=== PATIENT | female | born 1965 | race Caucasian/White ===

== ENCOUNTER → 2018-09-30 | Outpatient (CLI) | payer BC, SELFPAY ==
[2018-09-29 08:33] VITALS: BMI 35.2
--- NOTE | 2018-09-30 07:26 | RAD_ITS ---
STUDY: X-RAY - RIGHT HAND, ATTENTION 5TH FINGER REASON FOR EXAM: Female, 53 years old. Trauma TECHNIQUE: 3 view(s) of the finger were obtained. COMPARISON: None. FINDINGS: There is no evidence of fracture or dislocation. There are no significant degenerative changes. There are no radiodense foreign bodies. RAD/Finger(s) Min 2 Views IMPRESSION: No fracture or dislocation. Electronically Signed: Juan C Olivia, at 16:48 EDT Tel , Service support ,
== END | disposition home or self-care (01) ==
LOC: HPRAD 07:25
PROVIDERS: Referring Provider Nurse Practitioner Family; Visit Provider Nurse Practitioner Family
DX: S69.91XA Unspecified injury of right wrist, hand and finger(s), initial encounter (principal)
CPT/HCPCS: 73140

== ENCOUNTER → 2019-12-02 14:55 | Outpatient (CLI) | payer BC, SELFPAY ==
[2019-11-18 08:11] VITALS: BMI 34.3
--- NOTE | 2019-12-02 15:00 | BI_ITS ---
MAMMOGRAPHY - BILATERAL SCREENING REASON FOR EXAM: Female, 54 years old. Routine annual screening examination. PERTINENT HISTORY: Non-contributory. TECHNIQUE: Digital bilateral breast lori (3D mammographic acquisition) in the CC and MLO projections. 2-D mediolateral oblique (MLO) and craniocaudad (CC) views of both breasts were obtained. CAD: Full Field Digital Mammography with Computer Added Detection was performed. COMPARISON: Comparison is made with prior outside examination dated 10/01/2018. FINDINGS: Breast Composition: The breasts are almost entirely fatty. There are no dominant masses or suspicious calcifications. No other significant abnormalities are identified. There has been no significant change since the prior study. BI/SCREEN MAMM (CAD) W/LORI BILAT IMPRESSION: Stable bilateral screening mammogram. Yearly follow-up mammogram recommended. (A) ASSESSMENT CATEGORY: BIRADS Category 1: Negative. A letter regarding these results will be sent to the patient by the facility within 30 days. Approximately 10% of breast cancers are not detected by mammography. A normal mammogram should not delay biopsy of a clinically suspicious abnormality. [id number] Electronically Signed: Romeo Pettit, at 15:40 EDT , Service support ,
== END ==
PROVIDERS: PCP Nurse Practitioner Family; Referring Provider Nurse Practitioner Family; Visit Provider Nurse Practitioner Family
DX: Z12.31 Encounter for screening mammogram for malignant neoplasm of breast (principal)
CPT/HCPCS: 77063; 77067

== ENCOUNTER → 2020-01-14 14:05 | Outpatient (CLI) | payer BC, SELFPAY ==
[2020-01-14 11:33] VITALS: BMI 34.3
[2020-01-19 16:12] LABS: HPV APTIMA, High Risk Negative (Negative)
== END ==
PROVIDERS: PCP Nurse Practitioner Family; Referring Provider Obstetrics & Gynecology; Visit Provider Obstetrics & Gynecology
DX: Z12.4 Encounter for screening for malignant neoplasm of cervix (principal)
CPT/HCPCS: 87624; 88175; G0145

== ENCOUNTER → 2020-05-25 19:32 | Outpatient (CLI) | payer BC, SELFPAY ==
[2020-02-24 08:39] VITALS: BMI 33.0
== END ==
PROVIDERS: PCP Nurse Practitioner Family; Referring Provider Nurse Practitioner Family; Visit Provider Nurse Practitioner Family
DX: J01.90 Acute sinusitis, unspecified (principal); J02.9 Acute pharyngitis, unspecified
CPT/HCPCS: 87635; 87880; U0005; U0003

== ENCOUNTER → 2020-06-07 13:39 | Outpatient (CLI) | payer BC, SELFPAY ==
[2020-02-24 08:39] VITALS: BMI 33.0
== END ==
PROVIDERS: PCP Nurse Practitioner Family; Referring Provider Nurse Practitioner Family; Visit Provider Nurse Practitioner Family
DX: J02.9 Acute pharyngitis, unspecified (principal)
CPT/HCPCS: 87070

== ENCOUNTER 2020-07-22 10:41 | Outpatient (RCR) | payer BC, SELFPAY ==
[2020-06-22 16:17] VITALS: BMI 31.4
[2020-07-22] MEDS: COVID-19 VACC, MRNA(PFIZER)/PF 30 MCG/0.3 ML SYRINGE IM (07:41)
[2020-08-12] MEDS: COVID-19 VACC, MRNA(PFIZER)/PF 30 MCG/0.3 ML SYRINGE IM (07:31)
== END 2020-07-22 23:59 ==
LOC: IMMUN 10:41
PROVIDERS: PCP Nurse Practitioner Family; Visit Provider Family Medicine
DX: Z23 Encounter for immunization (principal)
CPT/HCPCS: 0001A; 0002A; 91300

== ENCOUNTER 2021-02-01 12:58 | Outpatient (CLI) | payer BC, SELFPAY ==
[2021-02-01] MEDS: 0.9% Saline Lock 10 ML Syringe IV (13:19)
[2021-02-01 13:21] VITALS: BP 121/76; PULSE 78; RESP 16; TEMP 36.9; O2SAT 99; BMI 29.2
[2021-02-01 14:05] VITALS: BP 122/76; PULSE 79; RESP 16; TEMP 36.6; O2SAT 98
[2021-02-01 15:12] VITALS: BP 123/76; PULSE 75; RESP 16; TEMP 36.6; O2SAT 99
== END 2021-02-01 15:13 | disposition home or self-care (01) ==
LOC: MS3OUT 12:58 → MS3 12:59
PROVIDERS: PCP Nurse Practitioner Family; Referring Provider Nurse Practitioner Adult Health; Visit Provider Nurse Practitioner Adult Health
DX: Z23 Encounter for immunization (principal); U07.1 COVID-19
CPT/HCPCS: J7050; M0243; A4216; Q0244

== ENCOUNTER 2021-06-26 14:07 | Outpatient (CLI) | payer BC, SELFPAY ==
--- NOTE | 2021-06-26 14:08 | BI_ITS ---
MAMMOGRAPHY - BILATERAL SCREENING REASON FOR EXAM: Female, 55 years old. Routine annual screening examination. PERTINENT HISTORY: Non-contributory. TECHNIQUE: Digital bilateral breast lori (3D mammographic acquisition) in the CC and MLO projections. 2-D mediolateral oblique (MLO) and craniocaudad (CC) views of both breasts were obtained. CAD: Full Field Digital Mammography with Computer Added Detection was performed. COMPARISON: Comparison is made with prior study of 12/02/2019. FINDINGS: Breast Composition: The breasts are almost entirely fatty. There are no dominant masses or suspicious calcifications. Stable small benign-appearing bilateral axillary No other significant abnormalities are identified. There has been no significant change since the prior study. BI/SCRN MAMM (CAD)W/LORI BILAT IMPRESSION: Stable bilateral screening mammogram. Yearly follow-up mammogram recommended. (A) ASSESSMENT CATEGORY: BIRADS Category 2: Benign. A letter regarding these results will be sent to the patient by the facility within 30 days. Approximately 10% of breast cancers are not detected by mammography. A normal mammogram should not delay biopsy of a clinically suspicious abnormality. [id number] Electronically Signed: Romeo Pettit MD at 15:03 EST ,
== END 2021-06-26 23:59 | disposition home or self-care (01) ==
LOC: OPBI 14:07
PROVIDERS: PCP Nurse Practitioner Family; Visit Provider Nurse Practitioner Women's Health
DX: Z12.31 Encounter for screening mammogram for malignant neoplasm of breast (principal)
CPT/HCPCS: 77063; 77067

== ENCOUNTER 2021-07-11 08:54 | Outpatient (CLI) | payer BC, SELFPAY ==
[2021-07-11 12:28] LABS: Absolute Neutrophil Count 3.6 X10^3/uL (2.0-7.7); Basophil# 0.03 X10^3/uL; Basophil% 0.5 % (0-1); Eosinophil# 0.11 X10^3/uL; Eosinophils% 1.7 % (0-5); Hematocrit 41.2 % (37-47); Hemoglobin 12.7 g/dL (12.0-15.0); Lymphocyte % 33.3 % (19-41); Mean Corp Hgb Conc 30.8 g/dL (32-36); Mean Corpuscular Hgb 24.7 pg (27.0-32.0); Mean Corpuscular Volume 80.2 fL (81-99); Mean Platelet Vol. 9.7 fl (6.2-12.0); Monocyte# 0.46 X10^3/uL; Monocyte% 7.3 % (0-10); NRBC Flagged by Analyzer 0 % (0-5); Neutrophil # 3.59 X10^3/uL (2.7-7.7); Platelet Count 502 K/mm3 (150-450); RBC Distribution Width CV 14.4 % (11.6-14.6); RBC Distribution Width SD 41.6 fl (35.1-43.9); Red Blood Count 5.14 M/mm3 (4.2-5.4); White Blood Count 6.3 K/mm3 (4.4-11.0)
[2021-07-11 13:13] LABS: ALB/GLOB Ratio 1.2 RATIO (0.9-2.4); AST(SGOT) 19 U/L (15-37); Alanine Aminotransfer ALT/SGPT 35 U/L (13-56); Albumin, Serum 4.1 g/dL (3.2-5.0); Alkaline Phosphatase 57 U/L (45-117); Anion Gap 6 (5-15); BUN 19 mg/dL (7-18); BUN/Creat Ratio 22.8 RATIO (10-20); Calcium,Total 9.2 mg/dL (8.5-10.1); Chloride 103 mmol/L (98-107); Cholesterol 95 mg/dL (200); Creatinine, Serum 0.83 mg/dL (0.55-1.02); EST Glomerular Filtration Rate 76 mL/min (>60); Est Glom Filt Rate - Afr Amer 92 mL/min (>60); Globulin 3.5 g/dL (2.2-4.2); Glucose 99 mg/dL (74-106); High Density Lipoprotein 45 mg/dL; Potassium 3.7 mmol/L (3.5-5.1); Protein, Total 7.6 g/dL (6.4-8.2); Sodium Level 136 mmol/L (136-145); Thyroid Stim Hormone (TSH) 1.09 uIU/mL (0.358-3.74); Triglycerides 83 mg/dL; Very Low Density Lipoprotein 17 mg/dL (5-40)
== END 2021-07-11 23:59 | disposition home or self-care (01) ==
LOC: BIMLAB 08:55
PROVIDERS: PCP Nurse Practitioner Family; Referring Provider Nurse Practitioner Family; Visit Provider Nurse Practitioner Family
DX: I10 Essential (primary) hypertension (principal); E11.9 Type 2 diabetes mellitus without complications
CPT/HCPCS: 36415; 80053; 80061; 84443; 85025

== ENCOUNTER → 2021-10-24 | Outpatient (CLI) | payer BC, SELFPAY ==
[2021-10-24 15:40] LABS: Hematocrit 37.6 % (37-47); Hemoglobin 11.7 g/dL (12.0-15.0); Mean Corp Hgb Conc 31.1 g/dL (32-36); Mean Corpuscular Hgb 24.3 pg (27.0-32.0); Mean Corpuscular Volume 78.2 fL (81-99); Mean Platelet Vol. 10.1 fl (6.2-12.0); Platelet Count 501 K/mm3 (150-450); RBC Distribution Width CV 14.4 % (11.6-14.6); RBC Distribution Width SD 40.7 fl (35.1-43.9); Red Blood Count 4.81 M/mm3 (4.2-5.4); White Blood Count 7.9 K/mm3 (4.4-11.0)
== END | disposition home or self-care (01) ==
LOC: BIMLAB 13:19
PROVIDERS: PCP Nurse Practitioner Family; Visit Provider Nurse Practitioner Family
DX: R79.89 Other specified abnormal findings of blood chemistry (principal)
CPT/HCPCS: 36415; 85027

== ENCOUNTER → 2022-01-24 | Outpatient (CLI) | payer BC, SELFPAY ==
[2022-01-24 09:08] LABS: Bacteria 0 SEEN /hpf (None Seen); Mucous, Urine 0 SEEN /hpf (<or=2+); Red Blood Cells-Urine 0 SEEN /hpf (0-5)
[2022-01-24 12:31] LABS: Color, Urine Yellow (Yellow); Glucose, Dipstick 1000 mg/dl (Normal); Ketone-Dipstick Negative (Negative); Leukocyte Esterase-Dipstick 25 /ul (Negative); Nitrite-Dipstick Negative (Negative); Occult Blood-Urine Negative /ul (Negative); Protein-Dipstick Negative (Negative); Specific Gravity, Urine 1.015 (1.002-1.030); Urine Bilirubin Dipstick Negative (Negative); Urine Clarity Sl. Cloudy (Clear); Urine Urobilinogen Normal (Normal)
[2022-01-24 12:39] LABS: Squamous Epithelial Cells - UA 0-5 SEEN /hpf (5-10); White Blood Cells 0-5 SEEN /hpf (0-5)
== END | disposition home or self-care (01) ==
LOC: LABSPEC 09:08
PROVIDERS: PCP Nurse Practitioner Family; Referring Provider Nurse Practitioner Family; Visit Provider Nurse Practitioner Family
DX: R30.0 Dysuria (principal)
CPT/HCPCS: 81001; 87086; 87088

== ENCOUNTER → 2022-07-10 | Outpatient (CLI) | payer OTHER, SELFPAY ==
--- NOTE | 2022-07-10 07:03 | BI_ITS ---
MAMMOGRAPHY - BILATERAL SCREENING REASON FOR EXAM: Female, 56 years old. Routine annual screening examination. PERTINENT HISTORY: Non-contributory. TECHNIQUE: Digital bilateral breast lori (3D mammographic acquisition) in the CC and MLO projections. 2-D mediolateral oblique (MLO) and craniocaudad (CC) views of both breasts were obtained. CAD: Full Field Digital Mammography with Computer Added Detection was performed. COMPARISON: Comparison is made with prior study dated June 26, 2021 and December 02, 2019. FINDINGS: Breast Composition: The breasts are almost entirely fatty. There are no dominant masses or suspicious calcifications. No other significant abnormalities are identified. There has been no significant change since the prior study. BI/SCRN MAMM (CAD)W/LORI BILAT IMPRESSION: Stable bilateral screening mammogram. Yearly follow-up mammogram recommended. (A) ASSESSMENT CATEGORY: BIRADS Category 1: Negative. A letter regarding these results will be sent to the patient by the facility within 30 days. Approximately 10% of breast cancers are not detected by mammography. A normal mammogram should not delay biopsy of a clinically suspicious abnormality. [id number] Electronically Signed: Romeo Pettit MD at 8:31 EST ,
== END | disposition home or self-care (01) ==
LOC: OPBI 07:01
PROVIDERS: PCP Nurse Practitioner Family; Visit Provider Obstetrics & Gynecology
DX: Z12.31 Encounter for screening mammogram for malignant neoplasm of breast (principal)
CPT/HCPCS: 77063; 77067

== ENCOUNTER → 2022-10-25 | Outpatient (CLI) | payer OTHER, SELFPAY ==
[2022-10-25 12:43] LABS: Absolute Lymphocyte Count 1.62 X10^3/uL (0.83-4.51); Absolute Neutrophil Count 2.9 X10^3/uL (2.0-7.7); Basophil# 0.04 X10^3/uL; Basophil% 0.8 % (0-1); Eosinophil# 0.12 X10^3/uL; Eosinophils% 2.4 % (0-5); Hematocrit 40.9 % (37-47); Hemoglobin 12.2 g/dL (12.0-15.0); Lymphocyte # 1.62 X10^3/ul (0.83-4.51); Lymphocyte % 31.8 % (19-41); Mean Corp Hgb Conc 29.8 g/dL (32-36); Mean Corpuscular Volume 77.2 fL (81-99); Mean Platelet Vol. 9.9 fl (6.2-12.0); Monocyte# 0.45 X10^3/uL; Monocyte% 8.8 % (0-10); NRBC Flagged by Analyzer 0 % (0-5); Neutrophil # 2.86 X10^3/uL (2.7-7.7); Platelet Count 482 K/mm3 (150-450); RBC Distribution Width CV 14.9 % (11.6-14.6); RBC Distribution Width SD 41.2 fl (35.1-43.9); White Blood Count 5.1 K/mm3 (4.4-11.0)
[2022-10-25 12:44] LABS: Microalbumin,Random Urine 15.1 mg/L (NO RANGE EST.); Microalbumin:Creatinine Ratio 8.3 mg/g CRE (<30 mg/g CRE)
[2022-10-25 12:47] LABS: ALB/GLOB Ratio 1.1 RATIO (0.9-2.4); AST(SGOT) 15 U/L (15-37); Alanine Aminotransfer ALT/SGPT 22 U/L (13-56); Alkaline Phosphatase 65 U/L (45-117); Anion Gap 6 (5-15); BUN 26 mg/dL (7-18); BUN/Creat Ratio 32.5 RATIO (10-20); Calcium,Total 9.5 mg/dL (8.5-10.1); Chloride 102 mmol/L (98-107); Cholesterol 96 mg/dL (200); EST Glomerular Filtration Rate 79 mL/min (>60); Est Glom Filt Rate - Afr Amer 96 mL/min (>60); Globulin 3.6 g/dL (2.2-4.2); Glucose 121 mg/dL (74-106); High Density Lipoprotein 45 mg/dL; Potassium 3.8 mmol/L (3.5-5.1); Protein, Total 7.6 g/dL (6.4-8.2); Sodium Level 138 mmol/L (136-145); Thyroid Stim Hormone (TSH) 1.09 uIU/mL (0.358-3.74); Triglycerides 92 mg/dL; Very Low Density Lipoprotein 18 mg/dL (5-40)
[2022-10-25 13:29] LABS: Hemoglobin A1c 7.3 % (3.8-5.6)
== END | disposition home or self-care (01) ==
PROVIDERS: PCP Nurse Practitioner Family; Referring Provider Nurse Practitioner Family; Visit Provider Nurse Practitioner Family
DX: E11.9 Type 2 diabetes mellitus without complications (principal); I10 Essential (primary) hypertension; F32.9 Major depressive disorder, single episode, unspecified
CPT/HCPCS: 36415; 80053; 80061; 82043; 82570; 83036; 84443; 85025

== ENCOUNTER → 2023-07-15 | Outpatient (CLI) | payer OTHER, SELFPAY ==
--- NOTE | 2023-07-15 12:17 | BI_ITS ---
MAMMOGRAPHY - BILATERAL SCREENING REASON FOR EXAM: Female, 57 years old. Routine annual screening examination. PERTINENT HISTORY: Non-contributory. TECHNIQUE: Digital bilateral breast lori (3D mammographic acquisition) in the CC and MLO projections. 2-D mediolateral oblique (MLO) and craniocaudad (CC) views of both breasts were obtained. CAD: Full Field Digital Mammography with Computer Added Detection was performed. COMPARISON: Comparison is made with prior study dated July 10, 2022 and June 26, 2021. FINDINGS: Breast Composition: The breasts are almost entirely fatty. There are no dominant masses or suspicious calcifications. No other significant abnormalities are identified. There has been no significant change since the prior study. BI/SCRN MAMM (CAD)W/LORI BILAT IMPRESSION: Stable bilateral screening mammogram. Yearly follow-up mammogram recommended. (A) ASSESSMENT CATEGORY: BIRADS Category 1: Negative. A letter regarding these results will be sent to the patient by the facility within 30 days. Approximately 10% of breast cancers are not detected by mammography. A normal mammogram should not delay biopsy of a clinically suspicious abnormality. [id number] Electronically Signed: Romeo Pettit MD at 14:52 EDT ,
== END | disposition home or self-care (01) ==
LOC: OPBI 12:17
PROVIDERS: Referring Provider Obstetrics & Gynecology; Visit Provider Obstetrics & Gynecology
DX: Z12.31 Encounter for screening mammogram for malignant neoplasm of breast (principal)
CPT/HCPCS: 77063; 77067

== ENCOUNTER → 2023-11-13 | Outpatient (CLI) | payer OTHER, SELFPAY ==
[2023-11-13 13:04] LABS: Absolute Lymphocyte Count 1.56 X10^3/uL (0.83-4.51); Absolute Neutrophil Count 2.9 X10^3/uL (2.0-7.7); Basophil# 0.04 X10^3/uL; Basophil% 0.8 % (0-1); Eosinophil# 0.14 X10^3/uL; Eosinophils% 2.8 % (0-5); Hemoglobin 12.7 g/dL (12.0-15.0); Lymphocyte # 1.56 X10^3/ul (0.83-4.51); Lymphocyte % 30.6 % (19-41); Mean Corp Hgb Conc 31.8 g/dL (32-36); Mean Corpuscular Hgb 24.5 pg (27.0-32.0); Mean Corpuscular Volume 77.1 fL (81-99); Mean Platelet Vol. 9.8 fl (6.2-12.0); Monocyte# 0.44 X10^3/uL; Monocyte% 8.6 % (0-10); NRBC Flagged by Analyzer 0 % (0-5); Platelet Count 463 K/mm3 (150-450); RBC Distribution Width CV 14.9 % (11.6-14.6); RBC Distribution Width SD 40.4 fl (35.1-43.9); Red Blood Count 5.19 M/mm3 (4.2-5.4); White Blood Count 5.1 K/mm3 (4.4-11.0)
[2023-11-13 13:23] LABS: Vitamin B12 611 pg/mL (211-911); Vitamin D,25 Hydroxy 37.5 ng/mL
[2023-11-13 13:34] LABS: Cholesterol 83 mg/dL (200); High Density Lipoprotein 45 mg/dL; Triglycerides 73 mg/dL; Very Low Density Lipoprotein 15 mg/dL (5-40)
[2023-11-13 13:40] LABS: Microalbumin,Random Urine 11.9 mg/L (NO RANGE EST.)
[2023-11-14 06:37] LABS: ALB/GLOB Ratio 1.2 RATIO (0.9-2.4); AST(SGOT) 24 U/L (15-37); Alanine Aminotransfer ALT/SGPT 27 U/L (13-56); Albumin, Serum 4.2 g/dL (3.2-5.0); Alkaline Phosphatase 58 U/L (45-117); Anion Gap 10 (5-15); BUN 22 mg/dL (7-18); BUN/Creat Ratio 25.3 RATIO (10-20); Calcium,Total 9.5 mg/dL (8.5-10.1); Chloride 101 mmol/L (98-107); Creatinine, Serum 0.87 mg/dL (0.55-1.02); EST Glomerular Filtration Rate 72 mL/min (>60); Est Glom Filt Rate - Afr Amer 87 mL/min (>60); Globulin 3.6 g/dL (2.2-4.2); Glucose 108 mg/dL (74-106); Potassium 3.4 mmol/L (3.5-5.1); Protein, Total 7.8 g/dL (6.4-8.2); Sodium Level 136 mmol/L (136-145)
== END | disposition home or self-care (01) ==
PROVIDERS: PCP Nurse Practitioner Family; Referring Provider Nurse Practitioner Family; Visit Provider Nurse Practitioner Family
DX: E11.9 Type 2 diabetes mellitus without complications (principal); E56.9 Vitamin deficiency, unspecified
CPT/HCPCS: 36415; 80053; 80061; 82043; 82306; 82607; 84443; 85025

== ENCOUNTER → 2024-10-30 | Outpatient (CLI) | payer OTHER, SELFPAY | END | disposition home or self-care (01) | LOC: LABSPEC 16:31 | PROVIDERS: Obstetrics & Gynecology; PCP Nurse Practitioner Family; Referring Provider Obstetrics & Gynecology; Visit Provider Obstetrics & Gynecology | DX: Z12.4 Encounter for screening for malignant neoplasm of cervix (principal) | CPT/HCPCS: 87624; 88175; G0145 ==

== ENCOUNTER → 2024-11-10 | Outpatient (CLI) | payer OTHER, SELFPAY ==
--- NOTE | 2024-11-10 12:15 | BI_ITS ---
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 TECHNIQUE: SCRN MAMM (CAD)W/LORI BILAT COMPARISON: Prior exam(s) dated July 15, 2023.. FINDINGS: TISSUE DENSITY: The breasts are almost entirely fatty. Bilateral Breast Mammographic Findings: No significant masses, calcifications or other abnormalities are identified. No suspicious masses, areas of developing architectural distortion, or suspicious calcifications. There has been no significant interval change. BI/SCRN MAMM (CAD)W/LORI BILAT IMPRESSION: Stable examination. OVERALL FINAL ASSESSMENT BI-RADS 1: NEGATIVE. RECOMMEND ANNUAL MAMMOGRAPHIC SCREENING. RECOMMENDATION: Routine annual follow-up in 1 Year A letter with findings and recommendations will be mailed to the patient. Reading Location: [place] [id number]
== END | disposition home or self-care (01) ==
LOC: OPBI 12:06
PROVIDERS: PCP Nurse Practitioner Family; Referring Provider Obstetrics & Gynecology; Visit Provider Obstetrics & Gynecology
DX: Z12.31 Encounter for screening mammogram for malignant neoplasm of breast (principal)
CPT/HCPCS: 77063; 77067

== ENCOUNTER → 2024-12-09 | Outpatient (CLI) | payer OTHER, SELFPAY ==
[2024-12-09 16:38] LABS: Hematocrit 38.9 % (37-47); Hemoglobin 12.5 g/dL (12.0-15.0); Immature Granulocytes Count 0.010 X10^3/uL (0.0-0.0); Mean Corp Hgb Conc 32.1 g/dL (32-36); Mean Corpuscular Volume 76.7 fL (81-99); Mean Platelet Vol. 9.5 fl (6.2-12.0); NRBC Flagged by Analyzer 0 % (0-5); Platelet Count 524 K/mm3 (150-450); RBC Distribution Width CV 14.3 % (11.6-14.6); RBC Distribution Width SD 39.0 fl (35.1-43.9); Red Blood Count 5.07 M/mm3 (4.2-5.4); White Blood Count 6.5 K/mm3 (4.4-11.0)
[2024-12-09 17:33] LABS: AST(SGOT) 20 U/L (<=31); Alanine Aminotransfer ALT/SGPT 17 U/L (<=34); Albumin, Serum 4.6 g/dL (3.5-5.0); Alkaline Phosphatase 59 U/L (35-104); Anion Gap 18 (5-15); BUN 21 mg/dL (4-19); BUN/Creat Ratio 26.5 RATIO (10-20); Calcium,Total 10.0 mg/dL (7.6-11.0); Carbon Dioxide 22.3 mmol/L (21.0-32.0); Chloride 98 mmol/L (98-108); Cholesterol 96 mg/dL (<=200); Globulin 3.1 g/dL (2.2-4.2); Glucose 123 mg/dL (70-99); Low Density Lipoprotein Calc. 26 mg/dL; Potassium 3.2 mmol/L (3.3-5.1); Triglycerides 109 mg/dL; Very Low Density Lipoprotein 22 mg/dL (5-40); cholesterol:hdl ratio screen 1.98
[2024-12-09 18:01] LABS: Vitamin B12 2534 pg/mL (180-914); Vitamin D,25 Hydroxy 69.4 ng/mL (30-100)
--- OUTSIDE RECORDS SUMMARY | 2024-12-09 18:18 | XMS RPT_ITS | CCD ---
Author Organization [facility] CliniSynm Care Team Providers Care Primary Grade Teacher Name Role Phone Eckert WORKFORCE ANALYST, WORKFORCE ANALYST-C Scar Primary Care Provider Eckert WORKFORCE ANALYST, WORKFORCE ANALYST-C Scar Attending Provider [phone] Eckert WORKFORCE ANALYST, WORKFORCE ANALYST-C Scar Referring Provider [phone] Eckert WORKFORCE ANALYST, WORKFORCE ANALYST-C Scar Primary Care Provider Eckert WORKFORCE ANALYST, WORKFORCE ANALYST-C Scar Attending Provider [phone] Eckert WORKFORCE ANALYST, WORKFORCE ANALYST-C Scar Referring Provider [phone] Dr. Niki Puente Attending Provider [phone] Fela BURRELL, INDRA Josue Attending Provider Eckert WORKFORCE ANALYST, WORKFORCE ANALYST-C Scar Primary Care Provider Eckert WORKFORCE ANALYST, WORKFORCE ANALYST-C Scar Referring Provider [phone] Eckert WORKFORCE ANALYST, WORKFORCE ANALYST-C Scar Attending Provider [phone] Eckert WORKFORCE ANALYST, WORKFORCE ANALYST-C Scar Primary Care Provider Eckert WORKFORCE ANALYST, WORKFORCE ANALYST-C Scar Referring Provider [phone] Dr. Niki Puente Attending Provider [phone] Eckert WORKFORCE ANALYST-C, Scar Primary Care Provider Eckert WORKFORCE ANALYST-C, Scar Referring Provider Dr. Niki Puente MD Attending Provider Dr. Ольга Barger DO Attending Provider Dr. Ольга Barger DO Referring Provider Dr. Niki Puente MD Referring Provider Tomeka MELGAR, Scar Referring Unavailable Niki Puente Attending Unavailable [facility], Scar Primary Care Unavailable Niki Puente Attending Unavailable Niki Puente Referring Unavailable [facility], Scar Primary Care Unavailable Ольга Barger Attending UnavailОльга Ge Referring Unavailabl e [facility], Scar Primary Care Unavailable [facility], Scar Referring Unavailable Niki Puente Attending Unavailable [facility], Scar Primary Care Unavailable Medications Current Medications Medication Drug Class(es) Dates Sig (Normalized) Sig (Original) fluconazole 150 mg oral tablet (5 sources) Azole Antifungal Start: 11-10-2024 Fluconazole 150 mg tablet Active 150 mg PO Every 3 Days 2 November 10, 2024 12:00am may repeat second dose 72 hrs after first dose if symptoms persist Start: 01-25-2023 End: 07-04-2023 Fluconazole (Diflucan) 150 m g tablet Discontinued 150 mg PO Every 3 Days 2 January 25, 2023 12:00am July 04, 2023 9:33am may repeat second dose 72 hrs after first dose if symptoms persist metFORMIN hydrochloride 850 mg oral tablet (20 sources) Biguanide Start: 05-01-2022 End: 08-07-2022 take 1 tablet by mouth twice daily Metformin 850 mg tablet Active 850 mg PO TWICE A DAY 270 3 August 07, 2022 9:09am Start: 04-07-2018 End: 05-01-2022 take 1 tablet by mouth three times daily Metformin 850 mg tablet Discontinued 850 mg PO THREE TIMES A DAY 270 3 November 14, 2020 1:43pm July 11, 2021 10:06am nystatin 100 unt/mg topical powder (3 sources) Polyene Antifungal Start: 10-30-2024 Nystatin (N ystop) 100,000 unit/gram powder Active 1 NMA TOPICAL TWICE A DAY 45 7 October 30, 2024 12:00am Tirzepatide (1 source) Start: 07-04-2023 Tirzepatide Ac tive 10 MG SC EVERY WEEK July 04, 2023 1:00am Tirzepatide (Mounjaro) 12.5 mg/0.5 mL pen injector (3 sources) Start: 10-30-2024 Tirzepatide (Mounjaro) 12.5 mg/0.5 mL pen injector Active mg SC October 30, 2024 12:00am Diabetes valsartan 80 mg oral tablet (4 sources) Angiotensin 2 Receptor Jeff Start: 11-02-2022 take 1 tablet by mouth once daily Valsartan 80 mg tablet Active 80 mg PO DAILY 90 0 November 02, 2022 12:00am Completed/Discontinued Medications Medication Drug Class(es) Dates Sig (Normalized) Sig (Original) amoxicillin 500 mg oral capsule (20 sources) Penicillin-class Antibacterial Start: 02-16-2022 End: 02-26-2022 take 2 capsules by mouth twice daily Amoxicillin 500 mg capsule Discontinued 1000 mg PO TWICE A DAY 40 10 February 16, 2022 12:00am February 25, 2022 12:00am February 26, 2022 12:04am Start: 02-16-2022 End: 02-26-2022 take 1000 mg by mouth twice daily Amoxicillin Discontinued 1000 MG PO TWICE A DAY 40 February 16, 2022 12:00am February 26, 2022 12:04am Start: 12-15-2020 End: 12-25-2020 take 1 capsule by mouth three times daily Amoxicillin 500 mg capsule Discontinued 500 mg PO THREE TIMES A DAY 30 10 0 December 15, 2020 12:00am December 24, 2020 12:00am December 25, 2020 12:01am Start: 05-28-2018 End: 06-07-2018 take 2 capsules by mouth twice daily Amoxicillin 500 mg capsule Discontinued 1000 mg PO TWICE A DAY 40 10 May 28, 2018 1:00am June 06, 2018 1:00am June 07, 2018 1:09am Start: 05-28-2018 End: 06-07-2018 take 1000 mg by mouth twice daily Amoxicillin Discontinued 1000 MG PO TWICE A DAY 40 May 28, 2018 1:00am June 07, 2018 1:09am atorvastatin 10 mg oral tablet (20 sources) HMG-CoA Reductase Inhibitor Start: 04-07-2018 End: 08-03-2022 take 1 tablet by mouth once daily Atorvastatin 10 mg tablet Discontinued 10 mg PO DAILY 90 3 September 07, 2020 11:41am July 11, 2021 10:06am azithromycin 250 mg oral tablet (7 sources) Macrolide Antimicrobial Start: 06-07-2020 End: 06-22-2020 Azithromycin 250 mg tablet Discontinued 0 PO .COMPLEX 6 0 June 07, 2020 1:00am June 22, 2020 5:24pm Take two tablets by mouth on day one then one tablet by mouth on days 2-5 empagliflozin 25 mg oral tablet (20 sources) Sodium-Glucose Cotransporter 2 Inhibitor Start: 04-07-2018 End: 07-04-2023 take 1 tablet by mouth once daily Empagliflozin (Jardiance) 25 mg tablet Discontinued 25 mg PO DAILY 90 September 07, 2020 11:41am July 11, 2021 10:06am enalapril maleate 20 mg oral tablet (20 sources) Angiotensin Converting Enzyme Inhibitor Start: 04-07-2018 End: 11-02-2022 take 1 tablet by mouth twice daily Enalapril Maleate 20 mg tablet Discontinued 20 mg PO TWICE A DAY 180 August 07, 2022 9:09am November 02, 2022 8:00am estradiol 0.1 mg/ml vaginal cream (4 sources) Estrogen Start: 07-04-2023 End: 10-30-2024 Estradiol (Estrace) 0.01 % (0.1 mg/gram) cream Discontinued 0 VAGINAL .COMPLEX 42.5 3 July 04, 2023 1:00am October 30, 2024 2:50pm use fingertip amount or 1-2g every night vaginally x 2 weeks, then 1-3x weekly for maintenance Start: 07-04-2023 Estradiol (Est race) 0.01 % (0.1 mg/gram) cream Active 0 VAGINAL .COMPLEX 42.5 July 04, 2023 1:00am use fingertip amount or 1-2g every night vaginally x 2 weeks, then 1-3x weekly for maintenance 0.65 ml exenatide 3.08 mg/ml pen injector (8 sources) GLP-1 Receptor Agonist Start: 04-07-2018 End: 02-24-2020 Exenatide Microspheres (Bydureon) 2 mg/0.65 mL pen injector Discontinued 2 MG SC Q7D August 19, 2019 8:19am February 24, 2020 8:34am Exenatide Microspheres (Bydureon) 2 mg/0.65 mL pen injector (6 sources) Start: 08-19-2019 End: 02-24-2020 Exenatide Microspheres (Bydureon) 2 mg/0.65 mL pen injector Discontinued 2 mg SC Q7D 12 August 19, 2019 8:19am February 24, 2020 8:34am Start: 04-07-2018 End: 08-19-2019 Exenatide Microspheres (Byilir rejason) 2 mg/0.65 mL pen injector Discontinued 2 mg SC Q7D April 07, 2018 1:00am August 19, 2019 8:21am glimepiride 1 mg oral tablet (7 sources) Sulfonylurea Start: 04-07-2018 End: 04-24-2019 take 1 tablet by mouth once daily in the morning Glimepiride 1 mg tablet Discontinued 1 mg PO EVERY MORNING April 07, 2018 1:00am April 24, 2019 12:42pm hydroCHLOROthiazide 25 mg oral tablet (17 sources) Thiazide Diuretic Start: 05-14-2022 End: 08-03-2022 take 1 tablet by mouth once daily in the morning Hydrochlorothiazide 25 mg tablet Discontinued 25 mg PO EVERY MORNING 90 May 15, 2022 10:21am August 03, 2022 7:26am hydroCHLOROthiazide 25 mg / triamterene 37.5 mg oral capsule (20 sources) Potassium-sparin g Diuretic, Thiazide Diuretic Start: 04-07-2018 End: 07-11-2021 Triamterene-Hydrochlor othiazid 37.5-25 mg capsule Discontinued 1 NMA PO DAILY 90 September 07, 2020 11:41am July 11, 2021 9:31am Start: 04-07-2018 End: 07-11-2021 take 1 capsule by mouth once daily Triamterene-Hydrochlorothiazid Discontin ued 1 CAP PO DAILY September 07, 2020 11:41am July 11, 2021 9:31am lidocaine hydrochloride 20 mg/ml mucous membrane topical solution (7 sources) Antiarrhythmic, Amide Local Anesthetic Start: 06-07-2020 End: 09-28-2020 Lidocaine Hcl (Lidocaine Viscous) 2 % solution Discontinued 1 NMA MUCOUS MEM THREE TIMES A DAY as needed for pain 100 1 June 07, 2020 1:00am September 28, 2020 4:25pm nitrofurantoin, macrocrystals 25 mg / nitrofurantoin, monohydrate 75 mg oral capsule (7 sources) Nitrofuran Antibacterial Start: 01-25-2022 End: 01-30-2022 take 1 capsule by mouth every twelve hours at mealtime Nitrofurantoin Monohyd/M-Cryst (Macrobid) 100 mg capsule Discontinued 100 mg PO Q12H 10 5 0 January 25, 2022 12:00am January 29, 2022 12:00am January 30, 2022 12:04am must administer with a meal/food omeprazole 40 mg delayed release oral capsule (20 sources) Proton Pump Inhibitor Start: 06-23-2020 End: 08-03-2022 take 1 capsule by mouth once daily Omeprazole 40 mg capsule,delayed release(DR/EC) Discontinued 40 mg PO DAILY 90 3 August 19, 2020 11:28am July 11, 2021 10:06am Start: 12-23-2018 End: 02-24-2020 take 1 capsule by mouth once daily Omeprazole 40 mg capsule,delayed release(DR/EC) Discontinued 40 mg PO DAILY 90 2 May 20, 2019 2:44pm August 19, 2019 8:21am pantoprazole 40 mg delayed release oral tablet (7 sources) Proton Pump Inhibitor Start: 02-24-2020 End: 06-23-2020 take 1 tablet by mouth once daily Pantoprazole 40 mg tablet,delayed release (DR/EC) Discontinued 40 mg PO DAILY 90 February 24, 2020 12:00am June 23, 2020 10:36am penicillin v potassium 500 mg oral tablet (11 sources) Start: 11-02-2022 End: 11-12-2022 take 1 tablet by mouth twice daily Penicillin V Potassium 500 mg tablet Discontinued 500 mg PO TWICE A DAY 20 10 November 02, 2022 12:00am November 11, 2022 12:00am November 12, 2022 12:03am Start: 05-26-2020 End: 06-05-2020 take 1 tablet by mouth twice daily Penicillin V Potassium 500 mg tablet Discontinued 500 mg PO TWICE A DAY 20 10 May 26, 2020 1:00am June 04, 2020 1:00am June 05, 2020 1:03am pioglitazone 15 mg oral tablet (20 sources) Peroxisome Proliferator Receptor alpha Agonist, Peroxisome Proliferator Receptor gamma Agonist, Thiazolidinedione Start: 02-24-2020 End: 02-24-2020 take 1 tablet by mouth once daily Pioglitazone 15 mg tablet Discontinued 15 mg PO DAILY 90 February 24, 2020 9:06am February 24, 2020 9:09am Start: 04-07-2018 End: 02-24-2020 take 1 tablet by mouth once daily Pioglitazone 30 mg tablet Discontinued 30 mg PO DAILY 90 3 August 19, 2019 8:19am February 24, 2020 9:06am predniSONE 10 mg oral tablet (7 sources) Start: 12-05-2020 End: 12-17-2020 Prednisone 10 mg tablet Discontinued 10 mg PO daily 30 12 0 December 05, 2020 12:00am December 16, 2020 12:00am December 17, 2020 12:01am Unspecified contact dermatitis, unspecified cause Take 4 tabs once daily days 1-3 3 tabs once daily days 4-6 2 tabs once daily days 7-9 and 1 tab once daily days 10-12. 1 mg dose 1.5 ml semaglutide 1.34 mg/ml pen injector (20 sources) Start: 02-24-2020 End: 11-02-2022 Semaglutide Discontinued 1 M G SC EVERY WEEK 3 March 09, 2022 3:27pm May 01, 2022 10:06am Start: 02-10-2020 End: 02-24-2020 Semaglutide (Ozempic) 0.25 m g or 0.5 mg(2 mg/1.5 mL) pen injector Discontinued 0.5 mg SC EVERY WEEK 1.6 28 3 February 10, 2020 12:00am February 24, 2020 9:09am Semaglutide (1 source) Start: 11-02-2022 End: 07-04-2023 Semaglutide Discontinued 2 M G SC EVERY WEEK 9.75 90 November 02, 2022 7:51am July 04, 2023 9:55am Semaglutide (Ozempic) 1 mg/d ose (2 mg/1.5 mL) pen injector (9 sources) Start: 07-11-2021 End: 03-09-2022 Semaglutide (Ozempic) 1 mg/d ose (2 mg/1.5 mL) pen injector Discontinued 1 mg SC EVERY WEEK 3 3 July 11, 2021 10:06am March 09, 2022 3:27pm Start: 02-13-2021 End: 07-11-2021 Semaglutide (Ozempic) 1 mg/d ose (2 mg/1.5 mL) pen injector Discontinued 1 mg SC EVERY WEEK 3 3 February 13, 2021 8:41am July 11, 2021 10:06am Start: 02-24-2020 End: 02-13-2021 Semaglutide (Ozempic) 1 mg/d ose (2 mg/1.5 mL) pen injector Discontinued 1 mg SC EVERY WEEK 3 3 February 24, 2020 12:00am February 13, 2021 8:41am Semaglutide 1 mg/dose (2 mg/ 1.5 mL) pen injector (6 sources) Start: 05-01-2022 End: 11-02-2022 Semaglutide 1 mg/dose (2 mg/ 1.5 mL) pen injector Discontinued 1 mg SC EVERY WEEK 9.75 90 3 May 01, 2022 10:06am November 02, 2022 7:53am Start: 03-09-2022 End: 05-01-2022 Semaglutide 1 mg/dose (2 mg/ 1.5 mL) pen injector Discontinued 1 mg SC EVERY WEEK 3 3 March 09, 2022 3:27pm May 01, 2022 10:06am Semaglutide 2 mg/dose (8 mg/3 mL) pen injector (3 sources) Start: 11-02-2022 End: 07-04-2023 Semaglutide 2 mg/dose (8 mg/3 mL) pen injector Discontinued 2 mg SC EVERY WEEK 9.75 90 3 November 02, 2022 7:51am July 04, 2023 9:55am Type 2 diabetes mellitus Type 2 diabetes mellitus without complications Tirzepatide 10 mg/0.5 mL pen injector (3 sources) Start: 07-04-2023 End: 10-30-2024 Tirzepatide 10 mg/0.5 mL pen injector Discontinued 10 mg SC EVERY WEEK July 04, 2023 1:00am October 30, 2024 2:51pm 24 hr venlafaxine 150 mg extended release oral tablet (20 sources) Serotonin and Norepinephrine Reuptake Inhibitor Start: 04-07-2018 End: 06-11-2022 take 1 tablet by mouth once daily Venlafaxine 150 mg tablet extended release 24hr Discontinued 150 mg PO DAILY 90 3 May 22, 2022 10:08am June 11, 2022 10:35am Problems Problem Classification Problem Date Documented Date Episodic/Chronic Allergic reactions (7 sources) Irritant contact dermatitis due to plant; Translations: [Irritant contact dermatitis due to plants, except food] 12-05-2020 Episodic Diabetes mellitus without complication (18 sources) Diabetes mellitus; Translations: [Type 2 diabetes mellitus without complications] Chronic Esophageal disorders (7 sources) Gastroesophageal reflux disease; Translations: [Gastro-esophageal reflux disease without esophagitis] 02-24-2020 Chronic Essential hypertension (10 sources) Hypertensive disorder; Translations: [Essential (primary) hypertension] Chronic Genitourinary symptoms and ill-defined conditions (1 source) Frequency of micturition; Translations: [Urinary frequency] Episodic Immunizations and screening for infectious disease (8 sources) Contact with and (suspected) exposure to other viral communicable diseases; Translations: [Contact with or suspected exposure to other viral communicable disease] Episodic Mood disorders (8 sources) Depressive disorder; Translations: [Depression] 02-24-2020 Chronic Mycoses (8 sources) Candidiasis of vagina; Translations: [Candidiasis of vagina] 07-04-2023 Episodic Comment on above: has had 3 infections in the last 6 months, reviewed if she has any more recommend vaginal culture for yeast and BV and recommend 6 month antifungal vaginal weekly suppressive therapy. Other ear and sense organ disorders (11 sources) Impacted cerumen; Translations: [Impacted cerumen, right ear] 04-07-2018 Episodic Other screening for suspected conditions (not mental disorders or infectious disease) (2 sources) Encounter for screening mammogram for malignant neoplasm of breast; Translations: [Encounter for screening for malignant neoplasm of cervix] Onset: 11-03-2024 Episodic Other upper respiratory infections (20 sources) Acute frontal sinusitis; Translations: [Acute frontal sinusitis, unspecified] 05-28-2018 Episodic Residual codes; unclassified (2 sources) Acquired absence of uterus with remaining cervical stump; Translations: [Other postprocedural status] Onset: 10-30-2024 07-04-2023 Episodic Unclassified (1 source) Acute candidiasis of vulva and vagina; Translations: [Acute candidiasis of vulva and vagina] Onset: 10-30-2024 Viral infection (7 sources) Disease caused by 2019-nCoV; Translations: [COVID-19] 01-31-2021 Episodic Results Test Name Value Interpretation Reference Range Facility PAP IG HPV APTIMA 16/18,45on 11-21-2024 ORDER Normal [facility] Comment on above: Order Comment: Clini nelly Info: POSTMENOPAUSAL Collection Vial: Thin Prep Vial RN TESTING Source: CERVICAL Date LMP/Menopause: MENOPAUSE Collection Techniques: CX BROOM ONLY Result Comment: IGP, Aptima HPV, rfx 16/18,45; One Specimen Identifier INTERPRETATION; NEGATIVE FOR INTRAEPITHELIAL LESION AND MALIGNANCY Specimen Adequacy: Satisfactory for evaluation. Endocervical and/or squamous metaplastic cells (endocervical component) are present. COMMENTS: The pap smear is a screening test designated to aid in the detection of pre-malignant and malignant conditions of the uterine cervix. It is not a diagnostic procedure and should not be used as the sole means of detecting cervical cancer. Both false-positive and false-negative reports do occur. This liquid based ThinPrep(R) pap test was screened with the use of an image guided system. Performed by Kishore Bowser, Plumber Maintenance (ASCP) This nucleic acid amplification test detects fourteen high-risk HPV types (16,18,31,33,35,39,45,51,52,56,58,59,66,68) without differentiation. One Specimen Identifier The specimen received included only one patient identifier on the primary collection container. Our laboratory accrediting agency states All primary specimen containers must be labeled with 2 identifiers at the time of collection. HPV RESULTS HPV Aptima: Negative HPV Genotype Reflex Criteria not met, HPV Genotype not performed. TESTING PERFORMED AT [facility]. ORIGINAL REPORT ON FILE IN LAB CONTAINS ADDITIONAL TEST SITE INFORMATION. Performed By: #### L [id number] #### [facility] [address] [place], [address] Breast imaging reportOrdered By: Romeo Pettit on 11-10-2024 Study report [facility] Imaging Services [address] [place], [place] [address] SCRN MAMM (CAD)W/LORI BILAT MR#: [id number] Acct: [id number] Name: MONSERRAT LEMUS Rep #: [id number] : 1965 F 59 From: Drake Pettit MD PCP: DYLAN Aguirre Status: REG CLI Study:SCRN MAMM (CAD)W/LORI BILAT Date of Exa m: 11/10/24 Exam# [id number] Ordering Dr: Niki Soto MD EXAM: SCRN MAMM (CAD)W/LORI BILAT DATE: 11/10/2024 CLINICAL HISTORY: F, Age 59 y/o , SCREENING MAMMOGRAM No family history. TECHNIQUE: SCRN MAMM (CAD)W/LORI BILAT COMPARISON: Prior exam(s) dated July 15, 2023.. FINDINGS: TISSUE DENSITY: The breasts are almost entirely fatty. Bilateral Breast Mammographic Findings: No significant masses, calcifications or other abnormalities are identified. No suspicious masses, areas of developing architectural distortion, or suspicious calcifications. There has been no significant interval change. BI/SCRN MAMM (CAD)W/LORI BILAT IMPRESSION: Stable examination. OVERALL FINAL ASSESSMENT BI-RADS 1: NEGATIVE. RECOMMEND ANNUAL MAMMOGRAPHIC SCREENING. RECOMMENDATION: Routine annual follow-up in 1 Year A letter with findings and recommendations will be mailed to the patient. Reading Location: [facility] CC: WORKFORCE ANALYST-C Scar Eckert; Dr. Niki Puente MD ~ Diffusion Furnace Operator: Signed [facility] SCRN MAMM (CAD)W/LORI BILATo n 11-10-2024 SCRN MAMM (CAD)W/LORI BILAT [facility] Imaging Services [address] [place], [place] [address] SCRN MAMM (CAD)W/LORI BILAT MR#: [id number] Acct: [id number] Name: MONSERRAT LEMUS Rep #: [id number] : 1965 F 59 From: Romeo jurado MD PCP: DYLAN Aguirre Status: REG CLI Study: SCRN MAMM (CAD)W/LORI BILAT Date of Exam: 12/28 Exam# [id number] Ordering Dr: Niki Puente EXAM: SCRN MAMM (CAD)W/LORI BILAT DATE: 11/10/2024 CLINICAL HISTORY: F, Age 59 y/o , SCREENING MAMMOGRAM No family history. TECHNIQUE: SCRN MAMM (CAD)W/LORI BILAT COMPARISON: Prior exam(s) dated July 15, 2023.. FINDINGS: TISSUE DENSITY: The breasts are almost entirely fatty. Bilateral Breast Mammographic Findings: No significant masses, calcifications or other abnormalities are identified. No suspicious masses, areas of developing architectural distortion, or suspicious calcifications. There has been no significant interval change. BI/SCRN MAMM (CAD)W/LORI BILAT IMPRESSION: Stable examination. OVERALL FINAL ASSESSMENT BI-RADS 1: NEGATIVE. RECOMMEND ANNUAL MAMMOGRAPHIC SCREENING. RECOMMENDATION: Routine annual follow-up in 1 Year A letter with findings and recommendations will be mailed to the patient. Reading Location: [place] [address] CC: WORKFORCE ANALYST-C Scar Eckert; Dr. Niki Puente MD Diffusion Furnace Operator: Signed Normal [facility] Supervisor Dry Cleaning Office Visit Reporton 10-30-2024 Supervisor Dry Cleaning Office Visit Report [facility] [address], [address] [place] [address] OFFICE VISIT Date of Service: 10/30/24 MR#: [id number] Acct: [id number] Name: MONSERRAT LEMUS RENU Rep #: [id number] : 1965 Provider: Dr. Niki murray MD Age/Sex: 59/F Location: [facility] Status: Signed Intake Vital Signs 07/04/23 08:36 10/30/24 14:48 Height 5 ft 7 in 5 ft 7 in Weight: 147 lb 2 oz BMI 23.0 BP 125/75 H Intake Visit Reasons: Annual (RN TESTING) Strategic Partnership Specialist Required: No Is patient in pain?: No Allergies No Known Allergies Allergy (Verified 10/30/24 14:49) Medications ???Medication ???Instructions ???Recorded ???Confirmed ???Type venlafaxine 150 mg tablet,extended 150 mg PO DAILY #90 tabs 3 10/30/24 Rx release 24 hr atorvastatin 10 mg tablet 10 mg PO DAILY #90 tabs 08/03/22 0 10/30/24 Rx hydrochlorothiazide 25 mg tablet 25 mg PO QAM #90 tabs 08/03/22 Rx omeprazole 40 mg capsule,delayed 40 mg PO DAILY #90 caps 08/03/22 0 10/30/24 Rx release metformin 850 mg tablet 850 mg PO BID #270 tabs 08/07/22 0 10/30/24 Rx valsartan 80 mg tablet 80 mg PO DAILY #90 tabs 11/02/22 0 10/30/24 Rx empagliflozin 25 mg tablet 12.5 mg PO DAILY 07/04/23 10/30/24 History (Jardiance) tirzepatide 12.5 mg/0.5 mL mg subcut Diabetes 10/30/24 History subcutaneous pen injector (Katty) Is last menstrual period known: No Post menopausal: Yes Patient : No : No PFSH Medical History Acute frontal sinusitis, unspecified Acute pharyngitis Acute sinusitis, unspecified Depression Diabetes Hypertension Surgical History Status post oophorectomy History of partial hysterectomy Family History Father Diabetes Hypertension Kidney transplanted Sister Diabetes Brother Diabetes Social History Smoking Status: Never smoker alcohol intake: never substance use type: does not use caffeine: Yes what type of physical activity do you participate in: none seatbelt use: always do you feel safe at home: Yes additional social history: - [employer] Patient works at [employer] History 2 Elective abortions Hx Para 2 Spontaneous abortions Hx # Term Pregnancies Ectopic pregnancies Hx # Pregnancies Multiple births # of living children Past Pregnancies Del. Date Name GA/Weeks Outcome Route [facility]th [facility] F[facility] Unknown Brendan Diaz HPI Encounter for routine gynecological examination Details: MONSERRAT LEMUS is a 59 year old who presents for annual exam.only 1 yeast infeciton this year Last PAP: 01/14/2020 - normal History of abnormal PAP: Last mammogram: 07/15/2023 - normal History of abnormal mammogram: Colon cancer screening: Other preventative health care screenings: VICKI Eckert Female Reproductive History Menopausal Symptoms: No hot flashes, No night sweats, No difficulty concentrating and No change in libido ROS Const Constitutional: Reports as per HPI; Denies fatigue, increased appetite, poor appetite, night sweats, weight gain or weight loss Cardio Card: Denies chest pain Resp Resp: Denies cough or dyspnea GI GI: Reports as per HPI; Denies abdominal pain, bloating, constipation, nausea or vomiting : Reports as per HPI and other; Denies difficulty voiding, dysuria, hematuria, hot flashes, nipple discharge, pelvic pain, prolapse symptoms, urinary frequency, urinary incontinence, urinary urgency, vaginal discharge, vaginal dryness, vaginal odor or vaginal pruritus Skin Skin/Breast: Denies changing lesions, breast mass, breast pain, breast skin changes or nipple discharge Psych Psych: Denies anxiety, change in libido, depression or difficulty concentrating Exam Const General: cooperative, healthy appearing, comfortable, no acute distress, well developed and well groomed HENUT Head: normal to inspection and normocephalic Ears: hearing grossly normal bilaterally and external ears normal Nose: external nose normal Face and sinus: normal facial exam Neck Neck: normal visual inspection, full ROM and no lymphadenopathy Thyroid: thyroid normal Chest Chest palpation inspection: normal inspection of the chest Breast inspection: normal inspection of the breasts and normal inspection of the axillae Breast palpation: normal palpation of the breasts, normal palpation of the axillae and no axillary lymphadenopathy Resp Effort Inspection: normal respiratory effort GI Inspection: normal to inspection and non-distende (more content not included)... Normal [facility] Absolute lymphocyte countOrd ered By: Scar Eckert on 10-25-2022 Lymphocytes Auto (Unsp spec) [#/Vol] 1.62 10*3/uL 0.83-4.51 [facility] Basophil percentageOrdered B y: Scar Eckert on 10-25-2022 Basophils/100 WBC (Bld) 0.8 % 0-1 [facility] Bilirubin [Mass/Vol] 0.70 mg/dL 0.20-1.00 [facility] Comment on above: For patients on eltr ombopag therapy, use of Dimension Vona TBIL is not recommended. Chloride [Moles/Vol] 102 mmol/L 98-107 [facility] Cholesterol [Mass/Vol] 96 mg/dL <200 [facility] Comment on above: <200 mg/dL Desirable 200-240 mg/dL Borderline >240 mg/dL High Risk Eosinophils/100 WBC (Bld) 2.4 % 0-5 [facility] Glucose [Mass/Vol] 121 mg/dL 74-106 [facility] Comment on above: Fasting Glucose resu lt from 100 to 125 mg/dL suggests IMPAIRED HOMEOSTASIS per A.D.A. criteria. Neutrophils (Bld) [#/Vol] 2.9 10*3/uL 2.0-7.7 [facility] Neutrophils/100 WBC (Bld) 56.0 % 47-70 [facility] Potassium [Moles/Vol] 3.8 mmol/L 3.5-5.[address] [facility] Protein [Mass/Vol] 7.6 g/dL 6.4-8.2 [facility] Sodium [Moles/Vol] 138 mmol/L 136-145 [facility] Triglyceride [Mass/Vol] 92 mg/dL <199 [facility] Comment on above: The drugs N-Acetylcy steine and Metamizole may falsely depress this assay.Serum Triglycerides Reference Interval Normal <150 mg/dL Borderline high 150 - 199 mg/dL High 200 - 499 mg/dL Very High > or = 500 mg/dL WBC (Bld) [#/Vol] 5.1 10*3/uL 4.4-11.0 [facility] Blood erythrocytes count (nu mber/volume)Ordered By: Scar Eckert on 10-25-2022 RBC (Bld) [#/Vol] 5.30 10*6/uL 4.2-5.4 [facility] Blood hemoglobin measurement (mass/volume)Ordered By: Scar Eckert on 10-25-2022 Hemoglobin (Bld) [Mass/Vol] 12.2 g/dL 12.0-15.0 [facility] Blood lymphocytes/100 leukoc ytesOrdered By: Scar Eckert on 10-25-2022 Lymphocytes/100 WBC (Bld) 31.8 % 19-41 [facility] Blood monocytes/100 leukocyt esOrdered By: Scar Eckert on 10-25-2022 Monocytes/100 WBC (Bld) 8.8 % 0-10 [facility] Blood platelet mean volumeOr dered By: Scar Eckert on 10-25-2022 Platelet mean volume (Bld) [Entitic vol] 9.9 fL 6.2-12.0 [facility] Determination of erythrocyte mean corpuscular volume (MCV)Ordered By: Scar Eckert on 10-25-2022 MCV (RBC) [Entitic vol] 77.2 fL 81-99 [facility] Hematocrit Auto (Bld) [Volum e fraction]Ordered By: Scar Eckert on 10-25-2022 Hematocrit (Bld) [Volume fraction] 40.9 % 37-47 [facility] Laboratory - Chemistry and C hemistry - challengeOrdered By: Scar Eckert on 10-25-2022 ALP [Catalytic activity/Vol] 65 U/L 45-117 [facility] ALT [Catalytic activity/Vol] 22 U/L 13-56 [facility] CO2 [Moles/Vol] 30.0 mmol/L 21.0-32.0 [facility] Globulin (S) [Mass/Vol] 3.6 g/dL 2.2-4.2 [facility] Urea nitrogen/Creatinine [Mass ratio] 32.5 mg/mg 10-20 [facility] Laboratory - Hematology and Cell countsOrdered By: Scar Eckert on 10-25-2022 Erythrocyte distribution width (RBC) [Entitic vol] 41.2 fL 35.1-43.9 [facility] Erythrocyte distribution width (RBC) [Ratio] 14.9 % 11.6-14.6 [facility] Immature granulocytes/100 WBC (Bld) 0.200 % 0.0-0.9 [facility] Comment on above: IG% - Immature Granu locytes (promyelocytes, myelocytes and metamyelocytes) > 1% indicates that a LEFT SHIFT is Present. MCH (RBC) [Entitic mass] 23.0 pg 27.0-32.0 [facility] Nucleated RBC/100 WBC (Bld) [Ratio] 0 % 0-5 [facility] MCHC Auto (RBC) [Mass/Vol]Or dered By: Scar Eckert on 10-25-2022 MCHC (RBC) [Mass/Vol] 29.8 g/dL 32-[address] [facility] No Panel InformationOrdered By: Scar Eckert on 10-25-2022 Estimated GFR (MDRD) Amer 96 mL/min >60 [facility] Comment on above: GFR Calc Estimated GFR (MDRD) Non-Af Amer 79 mL/min >60 [facility] Comment on above: Non- GFR Calc Thyroid Stimulating Hormone (TSH) 1.09 uIU/mL 0.358-3.74 [facility] Urine Microalbumin/Creatinin e Ratio 8.3 mg/g CRE <30 [facility] Platelets bldOrdered By: Xenia Eckert on 10-25-2022 Platelets (Bld) [#/Vol] 482 10*3/uL 150-450 [facility] Serum or plasma albumin polina urement (mass/volume)Ordered By: Scar Eckert on 10-25-2022 Albumin [Mass/Vol] 4.0 g/dL 3.2-5.0 [facility] Serum or plasma albumin/glob ulin mass ratioOrdered By: Scar Eckert on 10-25-2022 Albumin/Globulin [Mass ratio] 1.1 {ratio} 0.9-2.4 [facility] Serum or plasma calcium polina urement (mass/volume)Ordered By: Scar Eckert on 10-25-2022 Calcium [Mass/Vol] 9.5 mg/dL 8.5-10.1 [facility] Serum or plasma cholesterol in HDL measurement (mass/volume)Ordered By: Scar Eckert on 10-25-2022 Cholesterol in HDL [Mass/Vol] 45 mg/dL >40 [facility] Comment on above: The drugs N-Acetylcy steine and Metamizole may falsely depress this assay. Reference Range HDL <40 mg/dL Low HDL Cholesterol HDL >or= 60 mg/dL High HDL Cholesterol Serum or plasma cholesterol in VLDL measurement (mass/volume)Ordered By: Scar Eckert on 10-25-2022 Cholesterol in VLDL [Mass/Vol] 18 mg/dL 5-40 [facility] Serum or plasma creatinine m easurement (mass/volume)Ordered By: Scar Eckert on 10-25-2022 Creatinine [Mass/Vol] 0.80 mg/dL 0.55-1.[address] [facility] Comment on above: The validity of the calculated GFR & GFRAA in patients over 70 years has not been determined. Clinical correlation is essential. Serum or plasma low density lipoprotein (LDL) cholesterol measurement (mass/volume)Ordered By: Scar Eckert on 10-25-2022 Cholesterol in LDL [Mass/Vol] 33 mg/dL 0-130 [facility] Serum or plasma urea nitroge n measurement (mass/volume)Ordered By: Scar Eckert on 10-25-2022 Urea nitrogen [Mass/Vol] 26 mg/dL 7-18 [facility] Thin prep Papanicolaou smear with manual screeningOrdered By: Scar Eckert on 10-25-2022 Thin prep Papanicolaou smear with manual screening 15 U/L 15-37 [facility] Thin prep Papanicolaou smear with manual screening 6 5-15 [facility] Thin prep Papanicolaou smear with manual screening 15.1 mg/L NO RANGE EST. [facility] Urine creatinine measurement (mass/volume)Ordered By: Scar Eckert on 10-25-2022 Creatinine (U) [Mass/Vol] 181.00 mg/dL NO RANGE EST. [facility] Whole blood hemoglobin A1c/t otal hemoglobin ratio (mass fraction)Ordered By: Scar Eckert on 10-25-2022 HbA1c (Bld) [Mass fraction] 7.3 % 3.8-5.6 [facility] Comment on above: Normal < 5.7 % Predi abetic 5.7 - 6.4 % Diabetic >or= 6.5 % Please note range changes. Laboratory - Hematology and Cell countson 08-03-2022 HbA1c (Bld) [Mass fraction] 6.9 % 4.2-6.3 [facility] Laboratory - Hematology and Cell countson 05-01-2022 HbA1c (Bld) [Mass fraction] 6.2 % 4.2-6.3 [facility] Basophil percentageon 2021 Basophil percentage 0-5 SEEN /hpf 0-5 [facility] Work Phone: Bilirubin Test strip Ql (U)o n 01-23-2022 Bilirubin Ql (U) Negative Negative [facility] Work Phone: Ketones Test strip Ql (U)on 01-23-2022 Ketones Ql (U) Negative Negative [facility] Work Phone: Laboratory - Hematology and Cell countson 01-23-2022 HbA1c (Bld) [Mass fraction] 5.9 % 4.2-6.3 [facility] Work Phone: Mucus LM Ql (Urine sed)on Mucus Ql (Urine sed) 0 SEEN /hpf [facility] Work Phone: Nitrite Test strip Ql (U)on 01-23-2022 Nitrite Ql (U) Negative Negative [facility] Work Phone: Protein Test strip Ql (U)on 01-23-2022 Protein Ql (U) Negative Negative [facility] Work Phone: Squamous epithelial cells de tection in urine sediment by light microscopyon 01-23-2022 Epithelial cells.squamous LM Ql (Urine sed) 0-5 SEEN /hpf 5-10 [facility] Work Phone: Urine blood detectionon 01-05 RBC Ql (U) Negative Negative [facility] Work Phone: RBC Ql (U) 0 SEEN /hpf 0-5 [facility] Work Phone: Urine clarityon 01-23-2022 Clarity (U) Sl. Cloudy Clear [facility] Work Phone: Urine color determinationon 01-23-2022 Color (U) Yellow Yellow [facility] Work Phone: Urine glucose detectionon Glucose Ql (U) 1000 mg/dl Normal [facility] Work Phone: Urine leukocyte esterase det ection by dipstickon 01-23-2022 Leukocyte esterase Test strip Ql (U) 25 /ul Negative [facility] Work Phone: Urine pHon 01-23-2022 pH (U) 5.0 [pH] 5.0 - 8.0 [facility] Work Phone: Urine sediment bacteria coun t by microscopy (number/high power field)on 01-23-2022 Bacteria LM.HPF (Urine sed) [#/Area] 0 /[HPF] None Seen [facility] Work Phone: Urine specific gravity measu rementon 01-23-2022 Specific gravity (U) [Rel density] 1.015 1.002-1.030 [facility] Work Phone: Urobilinogen Auto test strip Ql (U)on 01-23-2022 Urobilinogen Ql (U) Normal mg/dl Normal [facility] Work Phone: Basophil percentageon 2021 WBC (Bld) [#/Vol] 7.9 10*3/uL 4.4-11.0 [facility] Work Phone: Blood erythrocytes count (nu mber/volume)on 10-24-2021 RBC (Bld) [#/Vol] 4.81 10*6/uL 4.2-5.4 [facility] Work Phone: Blood hemoglobin measurement (mass/volume)on 10-24-2021 Hemoglobin (Bld) [Mass/Vol] 11.7 g/dL 12.0-15.0 [facility] Work Phone: Blood platelet mean volumeon 10-24-2021 Platelet mean volume (Bld) [Entitic vol] 10.1 fL 6.2-12.0 [facility] Work Phone: Determination of erythrocyte mean corpuscular volume (MCV)on 10-24-2021 MCV (RBC) [Entitic vol] 78.2 fL 81-99 [facility] Work Phone: [phone] Hematocrit Auto (Bld) [Volum e fraction]on 10-24-2021 Hematocrit (Bld) [Volume fraction] 37.6 % 37-47 [facility] Work Phone: Laboratory - Hematology and Cell countson 10-24-2021 Erythrocyte distribution width (RBC) [Entitic vol] 40.7 fL 35.1-43.9 [facility] Work Phone: Erythrocyte distribution width (RBC) [Ratio] 14.4 % 11.6-14.6 [facility] Work Phone: MCH (RBC) [Entitic mass] 24.3 pg 27.0-32.0 [facility] Work Phone: MCHC Auto (RBC) [Mass/Vol]on 10-24-2021 MCHC (RBC) [Mass/Vol] 31.1 g/dL 32-[address] [facility] Work Phone: Platelets bldon 10-24-2021 Platelets (Bld) [#/Vol] 501 10*3/uL 150-450 [facility] Work Phone: Laboratory - Hematology and Cell countson 10-17-2021 HbA1c (Bld) [Mass fraction] 6.1 % 4.2-6.3 [facility] Work Phone: MA Mamm Screen w/CAD if perf and 3D Bilon 10-02-2018 Bilirubin.direct mass conc Exam Date/Time: 10/01/2018 15:05 EDT Reason for Exam: SCREENING 3D/LORI;Screening Report STUDY: Digital mammography screening with lori; 10/01/2018 3:05 pm ACCESSION NUMBER(S): [id number] ORDERING CLINICIAN: Teto Oquendo INDICATION: Screening. COMPARISON: Comparison is made to prior digital mammograms dated2016 FINDINGS: CC and MLO 2D digital mammograms and digital breast tomosynthesis images were obtained of the bilateral breasts. 3-D volume images were reconstructed in 4 views at an independent workstation as 1 mm slices through the breasts in both the CC and MLO projections. The breast tissue is almost entirely fatty. No discrete mass or focal asymmetry is identified. No suspicious microcalcifications or foci of architectural distortion are seen. There has been no significant change. This study was interpreted with CAD. IMPRESSION: No mammographic evidence of malignancy. BI-RADS CATEGORY: Category: 1 - Negative. Recommendation: Normal Interval Follow-up, Over Age 40. Recall Interval: 12 Months. Breast Density: Fatty. FINAL REPORT Dictated: 10/02/2018 9:15 am Davin Au MD Signed (Electronic Signature): 10/02/2018 9:15 am Signed by: Davin Au MD Technologist: ALFONSO Assessment: BI-RADS Category 1-Negative Recommendation: Normal interval follow-up Normal [facility] Albumin/Creat Ratioon 2018 Albumin Urine Random <12.0 Normal 0.0-23.0 [facility] Comment on above: Performed By: #### U ACR, LIPB, HBA1C, BMP #### [facility] [employer] ([facility]) [address] [phone] Albumin/Creat Ratio Not calculated Normal 0-30 [facility] Comment on above: Performed By: #### U ACR, LIPB, HBA1C, BMP #### [facility] [employer] ([facility]) [address] [phone] Creatinine,Urine,Ran 142.2 mg/dL Normal 20-300 [facility] Comment on above: Performed By: #### U ACR, LIPB, HBA1C, BMP #### [facility] [employer] ([facility]) [address] [phone] Basic Metabolic Panlon 09-17 Anion gap molar conc 16 mmol/L Normal 9-18 [facility] Comment on above: Performed By: #### U ACR, LIPB, HBA1C, BMP #### [facility] [employer] ([facility]) [address] [phone] Calcium mass conc 9.4 mg/dL Normal 8.5-10.2 [facility] Comment on above: Performed By: #### U ACR, LIPB, HBA1C, BMP #### [facility] [employer] ([facility]) [address] [phone] Chloride molar conc 103 mmol/L Normal 97-105 [facility] Comment on above: Performed By: #### U ACR, LIPB, HBA1C, BMP #### [facility] [address] [phone] CO2 molar conc 23 mmol/L Normal 22-30 [facility] Comment on above: Performed By: #### U ACR, LIPB, HBA1C, BMP #### [facility] [address] [address] Creatinine mass conc 0.92 mg/dL Normal 0.58-0.96 [facility] Comment on above: Performed By: #### U ACR, LIPB, HBA1C, BMP #### [place] [id number] [place] [phone] eGFR- Amer. >60 Normal [facility] Comment on above: Performed By: #### U ACR, LIPB, HBA1C, BMP #### [place] [id number] [place] [address] GFR/1.73 sq M predicted among non-blacks MDRD vol rate/area (S/P/Bld) mL/min/{1.73_m2} Normal [facility] Comment on above: Result Comment: eGFR (Estimated GFR) Units of measure: mL/min/1.73 meters squared eGFR is derived from the reexpressed MDRD Study equation using the following parameters: serum creatinine, age, gender and race. The creatinine assay has been calibrated to be traceable to IDMS. An eGFR <60 mL/min/1.73m2 for >3 months is consistent with chronic kidney disease. Refer to KDOQI guidelines for clinical interpretation. In patients with unstable renal function, e.g. those with acute kidney injury, the eGFR may not accurately reflect actual GFR. Performed By: #### U ACR, LIPB, HBA1C, BMP #### [facility] [address] [address] Glucose mass conc 82 mg/dL Normal 74-99 [facility] Comment on above: Result Comment: The [place] Diabetes Association (ADA) provides guidance for cutoff values for fasting glucose and random glucose. The ADA defines fasting as no caloric intake for at least 8 hours. Fasting plasma glucose results between 100 to 125 mg/dL indicate increased risk for diabetes (prediabetes). Fasting plasma glucose results greater than or equal to 126 mg/dL meet the criteria for diagnosis of diabetes. In the absence of unequivocal hyperglycemia, results should be confirmed by repeat testing. In a patient with classic symptoms of hyperglycemia or hyperglycemic crisis, random plasma glucose results greater than or equal to 200 mg/dL meet the criteria for diagnosis of diabetes. Reference: Standards of Medical Care in Diabetes 2016, [place] Diabetes Association. Diabetes Care. 2016.39(Suppl 1). Performed By: #### U ACR, LIPB, HBA1C, BMP #### [facility] ([facility]) [address] [address] Potassium molar conc 4.1 mmol/L Normal 3.7-5.1 [facility] Comment on above: Performed By: #### U ACR, LIPB, HBA1C, BMP #### [facility] ([facility]) [address] [place], [place] [address] Sodium molar conc 142 mmol/L Normal 136-144 [facility] Comment on above: Performed By: #### U ACR, LIPB, HBA1C, BMP #### [facility] ([facility]) [address] [place], [place] [address] Urea nitrogen mass conc 14 mg/dL Normal 7-21 [facility] Comment on above: Performed By: #### U ACR, LIPB, HBA1C, BMP #### [facility] ([facility]) [address] [place], [place] [address] Hemoglobin A1con 09-17-2018 Hemoglobin A1c/Hemoglobin.total mass fraction (Bld) 6.7 % High 4.3-5.6 [facility] Comment on above: Result Comment: Amer [place] Diabetes Association guidelines indicate that patients with HgbA1c in the range 5.7-6.4% are at increased risk for development of diabetes, and intervention by lifestyle modification may be beneficial. HgbA1c greater or equal to 6.5% is considered diagnostic of diabetes. Performed By: #### U ACR, LIPB, HBA1C, BMP #### [facility] ([facility]) [address] [place], [place] [address] Hemoglobin A1c/Hemoglobin.total mass fraction (Bld) 146 mg/dL Normal [facility] Comment on above: Result Comment: eAG: (Estimated average glucose) is a calculated value from HgbA1c and is telephone service representative of the average blood glucose level in the last 2-3 month period. Performed By: #### U ACR, LIPB, HBA1C, BMP #### [facility] ([facility]) [address] [place], [place] [address] Lipid Panel, [facility] 019 Cholesterol in HDL mass conc 38 mg/dL Low >39 [facility] Comment on above: Result Comment: 40-5 9 mg/dL, Acceptable >59 mg/dL, High: Negative risk factor for coronary heart disease <40 mg/dL, Low: Positive risk factor for coronary heart disease Performed By: #### U ACR, LIPB, HBA1C, BMP #### [facility] ([facility]) [address] [facility] [place], [place] [address] Cholesterol in LDL mass conc 33 mg/dL Normal <100 [facility] Comment on above: Result Comment: <100 mg/dL, Optimal 100-129 mg/dL, Near optimal/above optimal 130-159 mg/dL, Borderline high 160-189 mg/dL, High >189 mg/dL, Very high Secondary prevention optimal LDL Cholesterol levels are recommended to be < 70 mg/dL Performed By: #### U ACR, LIPB, HBA1C, BMP #### [facility] ([facility]) [address] [place], [place] [address] Cholesterol mass conc 90 mg/dL Normal <200 [facility] Comment on above: Result Comment: <200 mg/dL, Desirable 200-239 mg/dL, Borderline high >239 mg/dL, High Performed By: #### U ACR, LIPB, HBA1C, BMP #### [facility] ([facility] [address] [place], [place] [address] Fasting Time 12 hrs Normal [facility] Comment on above: Performed By: #### U ACR, LIPB, HBA1C, BMP #### [facility] ([facility] [address] [address] LDL:HDL Ratio 0.87 Normal <2.54 [facility] Comment on above: Result Comment: Kunal body: 1. National Cholesterol Education Program ATP III Guideline At-A-Glance Quick Desk Reference: National Heart, Lung, and Blood Eccles. National Institutes of Health. 2001: NIH Publication No. 01-3305. 2. An International Atherosclerosis Society position paper: global recommendations for the management of dyslipidemia: executive summary, Atherosclerosis. 2014: 232(2):410-413. Performed By: #### U ACR, LIPB, HBA1C, BMP #### [address] [place] [id number] [place] [place] [phone] Non HDL Cholesterol 52 mg/dL Normal <130 [facility] Comment on above: Result Comment: <130 mg/dL, Optimal 130-159 mg/dL, Near optimal/above optimal 160-189 mg/dL, Borderline high 190-219 mg/dL, High >219 mg/dL, Very high Secondary prevention optimal non HDL Cholesterol levels are recommended to be < 100 mg/dL Performed By: #### U ACR, LIPB, HBA1C, BMP #### [facility] [place] [address] TC:HDL Ratio 2.37 Normal <5.10 [facility] Comment on above: Performed By: #### U ACR, LIPB, HBA1C, BMP #### [facility] [address] [address] Triglyceride mass conc 93 mg/dL Normal <150 [facility] Comment on above: Result Comment: <150 mg/dL, Normal 150-199 mg/dL, Borderline high 200-499 mg/dL, High >499 mg/dL, Very high Performed By: #### U ACR, LIPB, HBA1C, BMP #### [facility] ([facility]) [address] [address] VLDL Cholesterol 19 mg/dL Normal <[address] [facility] Comment on above: Performed By: #### U ACR, LIPB, HBA1C, BMP #### [place] [id number] [place] [address] Basic Metabolic Panlon 03-12 Anion gap molar conc 16 mmol/L Normal 9-18 [facility] Comment on above: Performed By: #### H ZOHAIB, BMP #### [place] [phone] Calcium mass conc 9.9 mg/dL Normal 8.5-10.2 [facility] Comment on above: Performed By: #### H ZOHAIB, BMP #### [place] [phone] Chloride molar conc 96 mmol/L Low 97-105 [facility] Comment on above: Performed By: #### Shahrzad PENNY, BMP #### [place] [phone] CO2 molar conc 26 mmol/L Normal 22-30 [facility] Comment on above: Performed By: #### Shahrzad PENNY, BMP #### [address] [place] [address] Creatinine mass conc 0.99 mg/dL High 0.58-0.96 [facility] Comment on above: Performed By: #### Shahrzad PENNY, BMP #### [address] [place] [id number] [place] [address] eGFR- Amer. >60 Normal [facility] Comment on above: Performed By: #### Shahrzad PENNY, BMP #### [place] [address] GFR/1.73 sq M predicted among non-blacks MDRD vol rate/area (S/P/Bld) 59 . Normal [facility] Comment on above: Result Comment: eGFR (Estimated GFR) Units of measure: mL/min/1.73 meters squared eGFR is derived from the reexpressed MDRD Study equation using the following parameters: serum creatinine, age, gender and race. The creatinine assay has been calibrated to be traceable to IDMS. An eGFR <60 mL/min/1.73m2 for >3 months is consistent with chronic kidney disease. Refer to KDOQI guidelines for clinical interpretation. In patients with unstable renal function, e.g. those with acute kidney injury, the eGFR may not accurately reflect actual GFR. Performed By: #### H ZOHAIB, BMP #### [facility] (Chapter 11) [address] [place] [address] Glucose mass conc 146 mg/dL High 74-99 [facility] Comment on above: Result Comment: The [place] Diabetes Association (ADA) provides guidance for cutoff values for fasting glucose and random glucose. The ADA defines fasting as no caloric intake for at least 8 hours. Fasting plasma glucose results between 100 to 125 mg/dL indicate increased risk for diabetes (prediabetes). Fasting plasma glucose results greater than or equal to 126 mg/dL meet the criteria for diagnosis of diabetes. In the absence of unequivocal hyperglycemia, results should be confirmed by repeat testing. In a patient with classic symptoms of hyperglycemia or hyperglycemic crisis, random plasma glucose results greater than or equal to 200 mg/dL meet the criteria for diagnosis of diabetes. Reference: Standards of Medical Care in Diabetes 2016, [place] Diabetes Association. Diabetes Care. 2016.39(Suppl 1). Performed By: #### H BA1C, BMP #### [facility] (Chapter 11) [address] [place] [address] Potassium molar conc 4.1 mmol/L Normal 3.7-5.1 [facility] Comment on above: Performed By: #### H BA1C, BMP #### [facility] (Chapter 11) [address] [place], [place] [address] Sodium molar conc 138 mmol/L Normal 136-144 [facility] Comment on above: Performed By: #### H BA1C, BMP #### [facility] (Chapter 11) [address] [place], [place] [address] Urea nitrogen mass conc 19 mg/dL Normal 7-21 [facility] Comment on above: Performed By: #### H BA1C, BMP #### [facility] (Chapter 11) [address] [place] [address] Hemoglobin A1con 03-12-2018 Hemoglobin A1c/Hemoglobin.total mass fraction (Bld) 203 mg/dL Normal [facility] Comment on above: Result Comment: eAG: (Estimated average glucose) is a calculated value from HgbA1c and is telephone service representative of the average blood glucose level in the last 2-3 month period. Performed By: #### H BA1C, BMP #### [facility] (Chapter 11) [address] [place] [id number] Hemoglobin A1c/Hemoglobin.total mass fraction (Bld) 8.7 % High 4.3-5.6 [facility] Comment on above: Performed By: #### H BA1C, BMP #### [facility] (Chapter 11) [address] [place] [address] Culture, urine Bacteria identified Cx Nom (U) Mixed Gram Pos & Gram Neg Org [facility] Work Phone: Vital Signs Date Time Vital Sign Value Performing Clinician Genie bell 10-30-2024 14:48-0400 Body height 170.18 cm Scar Eckert WORKFORCE ANALYST-C Work Phone: [facility] 10-30-2024 14:48-0400 Body mass index (BMI) [Ratio] 23 kg/m2 Scar Eckert WORKFORCE ANALYST-C Work Phone: [facility] 10-30-2024 14:48-0400 Body weight 66.73 kg Scar Eckert WORKFORCE ANALYST-C Work Phone: [facility] 10-30-2024 14:48-0400 Diastolic blood pressure 75 mm[Hg] Scar Eckert WORKFORCE ANALYST-C Work Phone: [facility] 10-30-2024 14:48-0400 Systolic blood pressure 125 mm[Hg] Scar Eckert WORKFORCE ANALYST-C Work Phone: [facility] 07-04-2023 08:36-0500 Body height 170.18 cm WORKFORCE ANALYST-C Scar Eckert WORKFORCE ANALYST Work Phone: [facility] 07-04-2023 08:32-0500 Body mass index (BMI) [Ratio] 29.6 kg/m2 WORKFORCE ANALYST-C Scar Eckert WORKFORCE ANALYST Work Phone: [facility] 07-04-2023 08:32-0500 Body weight 73.48 kg WORKFORCE ANALYST-C Scar Eckert WORKFORCE ANALYST Work Phone: [facility] 07-04-2023 08:32-0500 Diastolic blood pressure 76 mm[Hg] WORKFORCE ANALYST-C Scar Eckert WORKFORCE ANALYST Work Phone: [facility] 07-04-2023 08:32-0500 Systolic blood pressure 120 mm[Hg] WORKFORCE ANALYST-C Scar Eckert WORKFORCE ANALYST Work Phone: [facility] 08-03-2022 07:09-0400 Body height 157.48 cm WORKFORCE ANALYST-C Scar Eckert WORKFORCE ANALYST Work Phone: [facility] 08-03-2022 07:09-0400 Body mass index (BMI) [Ratio] 29.8 kg/m2 WORKFORCE ANALYST-C Scar Eckert WORKFORCE ANALYST Work Phone: [facility] 08-03-2022 07:09-0400 Body temperature 97.9 [degF] WORKFORCE ANALYST-C Scar Eckert WORKFORCE ANALYST Work Phone: [facility] 08-03-2022 07:09-0400 Body weight 73.93 kg WORKFORCE ANALYST-C Scar Eckert WORKFORCE ANALYST Work Phone: [facility] 08-03-2022 07:09-0400 Diastolic blood pressure 86 mm[Hg] WORKFORCE ANALYST-C Scar Eckert WORKFORCE ANALYST Work Phone: [facility] 08-03-2022 07:09-0400 Heart rate 86 /min WORKFORCE ANALYST-C Scar Eckert WORKFORCE ANALYST Work Phone: [facility] 08-03-2022 07:09-0400 Respiratory rate 16 /min WORKFORCE ANALYST-C Scar Eckert WORKFORCE ANALYST Work Phone: [facility] 08-03-2022 07:09-0400 SaO2% (BldA) [Mass fraction] 99 % WORKFORCE ANALYST-C Scar Eckert WORKFORCE ANALYST Work Phone: [facility] 08-03-2022 07:09-0400 Systolic blood pressure 136 mm[Hg] WORKFORCE ANALYST-C Scar Eckert WORKFORCE ANALYST Work Phone: [facility] 06-28-2022 08:13-0500 Body height 157.48 cm WORKFORCE ANALYST-C Scar Eckert WORKFORCE ANALYST Work Phone: [facility] 06-28-2022 08:12-0500 Body mass index (BMI) [Ratio] 29.3 kg/m2 WORKFORCE ANALYST-C Scar Eckert WORKFORCE ANALYST Work Phone: [facility] 06-28-2022 08:12-0500 Body weight 72.8 kg WORKFORCE ANALYST-C Scar Eckert WORKFORCE ANALYST Work Phone: [facility] 06-28-2022 08:12-0500 Diastolic blood pressure 87 mm[Hg] WORKFORCE ANALYST-C Scar Eckert WORKFORCE ANALYST Work Phone: [facility] 06-28-2022 08:12-0500 Heart rate 87 /min WORKFORCE ANALYST-C Scar Eckert WORKFORCE ANALYST Work Phone: [facility] 06-28-2022 08:12-0500 Systolic blood pressure 136 mm[Hg] WORKFORCE ANALYST-C Scar Eckert WORKFORCE ANALYST Work Phone: [facility] 05-01-2022 08:54-0500 Body mass index (BMI) [Ratio] 28.5 kg/m2 WORKFORCE ANALYST-C Scar Eckert WORKFORCE ANALYST Work Phone: [facility] 05-01-2022 08:54-0500 Body temperature 98.6 [degF] WORKFORCE ANALYST-C Scar Eckert WORKFORCE ANALYST Work Phone: [facility] 05-01-2022 08:54-0500 Body weight 70.76 kg WORKFORCE ANALYST-C Scar Eckert WORKFORCE ANALYST Work Phone: [facility] 05-01-2022 08:54-0500 Diastolic blood pressure 108 mm[Hg] WORKFORCE ANALYST-C Scar Eckert WORKFORCE ANALYST Work Phone: [facility] 05-01-2022 08:54-0500 Heart rate 90 /min WORKFORCE ANALYST-C Scar Eckert WORKFORCE ANALYST Work Phone: [facility] 05-01-2022 08:54-0500 Respiratory rate 16 /min WORKFORCE ANALYST-C Scar Eckert WORKFORCE ANALYST Work Phone: [facility] 05-01-2022 08:54-0500 SaO2% (BldA) [Mass fraction] 99 % WORKFORCE ANALYST-C Scar Eckert WORKFORCE ANALYST Work Phone: [facility] 05-01-2022 08:54-0500 Systolic blood pressure 168 mm[Hg] WORKFORCE ANALYST-C Scar Eckert WORKFORCE ANALYST Work Phone: [facility] 01-23-2022 16:28-0400 Body height 157.48 cm WORKFORCE ANALYST-C Scar Eckert WORKFORCE ANALYST Work Phone: [facility] Work Phone: 01-23-2022 16:28-0400 Body mass index (BMI) [Ratio] 28.8 kg/m2 WORKFORCE ANALYST-C Scar Eckert WORKFORCE ANALYST Work Phone: [facility] Work Phone: 01-23-2022 16:28-0400 Body temperature 97.8 [degF] WORKFORCE ANALYST-C Scar Eckert WORKFORCE ANALYST Work Phone: [facility] Work Phone: 01-23-2022 16:28-0400 Body weight 71.32 kg WORKFORCE ANALYST-C Scar Eckert WORKFORCE ANALYST Work Phone: [facility] Work Phone: 01-23-2022 16:28-0400 Diastolic blood pressure 80 mm[Hg] WORKFORCE ANALYST-C Scar Eckert WORKFORCE ANALYST Work Phone: [facility] Work Phone: 01-23-2022 16:28-0400 Heart rate 78 /min WORKFORCE ANALYST-C Scar Eckert WORKFORCE ANALYST Work Phone: [facility] Work Phone: 01-23-2022 16:28-0400 Respiratory rate 18 /min WORKFORCE ANALYST-C Scar Eckert WORKFORCE ANALYST Work Phone: [facility] Work Phone: 01-23-2022 16:28-0400 SaO2% (BldA) [Mass fraction] 99 % WORKFORCE ANALYST-C Scar Eckert WORKFORCE ANALYST Work Phone: [facility] Work Phone: 01-23-2022 16:28-0400 Systolic blood pressure 130 mm[Hg] WORKFORCE ANALYST-C Scar Eckert WORKFORCE ANALYST Work Phone: [facility] Work Phone: 10-17-2021 08:07-0400 Body mass index (BMI) [Ratio] 28.1 kg/m2 WORKFORCE ANALYST-C Scar Eckert WORKFORCE ANALYST Work Phone: [facility] Work Phone: 10-17-2021 08:07-0400 Body temperature 97.2 [degF] WORKFORCE ANALYST-C Scar Eckert WORKFORCE ANALYST Work Phone: [facility] Work Phone: 10-17-2021 08:07-0400 Body weight 69.85 kg WORKFORCE ANALYST-C Scar Eckert WORKFORCE ANALYST Work Phone: [facility] Work Phone: 10-17-2021 08:07-0400 Diastolic blood pressure 74 mm[Hg] WORKFORCE ANALYST-C Scar Eckert WORKFORCE ANALYST Work Phone: [facility] Work Phone: 10-17-2021 08:07-0400 Heart rate 76 /min WORKFORCE ANALYST-C Scar Eckert WORKFORCE ANALYST Work Phone: [facility] Work Phone: 10-17-2021 08:07-0400 Respiratory rate 14 /min WORKFORCE ANALYST-C Scar Eckert WORKFORCE ANALYST Work Phone: [facility] Work Phone: 10-17-2021 08:07-0400 SaO2% (BldA) [Mass fraction] 98 % WORKFORCE ANALYST-C Scar Eckert WORKFORCE ANALYST Work Phone: [facility] Work Phone: 10-17-2021 08:07-0400 Systolic blood pressure 132 mm[Hg] WORKFORCE ANALYST-C Scar Eckert WORKFORCE ANALYST Work Phone: [facility] Work Phone: Encounters Encounter Date Encounter Type Care Provider Facility Start: 11-10-2024 End: 11-10-2024 ambulatory Scar cEkert WORKFORCE ANALYST-C Work Phone: -Outpatient Breast Imaging Start: 11-10-2024 End: 11-10-[address] Niki Puente MD -Outpatient Breast Imaging Work Phone: Start: 11-10-2024 End: 11-10-2024 ambulatory Niki Puente Facility:[facility] Start: 10-30-2024 End: 10-30-2024 ambulatory Scar Eckert WORKFORCE ANALYST-C Work Phone: -Laboratory Specimen Start: 10-30-2024 End: 10-30-[address] Ольга Barger DO -Laboratory Specimen Work Phone: Start: 10-30-2024 Encounter for gynecological examination (general) (routine) with abnormal findings Niki Puente [facility] Start: 10-30-2024 End: 10-30-[address] Niki Puente MD -[facility] Work Phone: Start: 10-30-2024 End: 10-30-[address] Niki Puente MD [facility] Start: 10-30-2024 End: 10-30-2024 ambulatory Scar Eckert WORKFORCE ANALYST-C Work Phone: -[facility] Start: 10-30-2024 End: 10-30-2024 ambulatory Ольга Barger Facility:[facility] Start: 2024 ambulatory Scar Eckert WORKFORCE ANALYST Facility: [facility] Start: 07-15-2023 End: 07-15-2023 ambulatory WORKFORCE ANALYST-C Scar Eckert WORKFORCE ANALYST Work Phone: [facility] Work Phone: Start: 07-15-2023 End: 07-15-2023 Patient encounter procedure WORKFORCE ANALYST-C Scar Eckert WORKFORCE ANALYST Work Phone: [facility]-Outpatient Breast Imaging Work Phone: Start: 07-04-2023 End: 07-04-2023 Patient encounter procedure WORKFORCE ANALYST-C Scra Eckert WORKFORCE ANALYST Work Phone: [facility] Work Phone: Start: 10-25-2022 End: 10-25-2022 ambulatory WORKFORCE ANALYST-C Scar Eckert WORKFORCE ANALYST Work Phone: [facility] Work Phone: Start: 10-25-2022 End: 10-25-2022 Patient encounter procedure WORKFORCE ANALYST-C Scar Eckert WORKFORCE ANALYST Work Phone: [facility]-Laboratory, [place] Start: 08-03-2022 End: 08-03-2022 Patient encounter procedure WORKFORCE ANALYST-C Scar Munsonder WORKFORCE ANALYST Work Phone: [facility] Start: 07-10-2022 End: 07-10-2022 ambulatory WORKFORCE ANALYST-C Scar Eckert WORKFORCE ANALYST Work Phone: [facility] Work Phone: Start: 07-10-2022 End: 07-10-2022 Patient encounter procedure WORKFORCE ANALYST-C Scar Eckert WORKFORCE ANALYST Work Phone: [facility]-Outpatient Breast Imaging Start: 07-04-2022 End: 07-04-2022 Patient encounter procedure WORKFORCE ANALYST-C Scar Eckert WORKFORCE ANALYST Work Phone: [facility] Start: 06-28-2022 End: 06-28-2022 Patient encounter procedure WORKFORCE ANALYST-C Scar Eckert WORKFORCE ANALYST Work Phone: [facility] Start: 05-01-2022 End: 05-01-2022 Patient encounter procedure WORKFORCE ANALYST-C Scar Munsonder WORKFORCE ANALYST Work Phone: [facility] Start: 01-24-2022 End: 01-24-2022 ambulatory WORKFORCE ANALYST-C Scar Eckert WORKFORCE ANALYST Work Phone: [facility] Work Phone: Start: 01-24-2022 End: 01-24-2022 Patient encounter procedure WORKFORCE ANALYST-C Scar Eckert WORKFORCE ANALYST Work Phone: [facility]-Laboratory, Specimen Start: 01-23-2022 End: 01-23-2022 Patient encounter procedure WORKFORCE ANALYST-C Scar Eckert WORKFORCE ANALYST Work Phone: [facility] Start: 10-24-2021 End: 10-24-2021 Patient encounter procedure WORKFORCE ANALYST-C Scar Eckert WORKFORCE ANALYST Work Phone: [facility]-Laboratory, [facility] Start: 10-17-2021 End: 10-17-2021 Patient encounter procedure WORKFORCE ANALYST-C Scar Eckert WORKFORCE ANALYST Work Phone: [facility] Start: 11-22-2017 Patient encounter Facil [id number] Procedures Date Procedure Procedure Detail Performing Clinician Start: 11-10-2024 Screening mammography M shakeel Eckert WORKFORCE ANALYST-C Work Phone: Start: 07-15-2023 Screening mammography N P-C Scar Eckert WORKFORCE ANALYST Work Phone: Start: 07-10-2022 Screening mammography N P-C Scar Eckert WORKFORCE ANALYST Work Phone: H/O: hysterectomy History of par tial hysterectomy WORKFORCE ANALYST-C Scar Eckert WORKFORCE ANALYST Work Phone: Comment on above: 2009 - has cer vix, needs pap smears. due 2024 H/O: hysterectomy History of par tial hysterectomy Dr. Niki Puente MD Urine culture WORKFORCE ANALYST-C Scar curtis WORKFORCE ANALYST Work Phone: Plan of Treatment Date Care Activity Detail Author Start: 11-10-2024 MG Breast - bilateral Screening [facility] Start: 10-30-2024 Liquid based cervica l cytology screening [facility] Cytology report of C ervical or vaginal smear or scraping Cyto stain.thin prep [facility] Liquid based cervica l cytology screening [facility] MG Breast - bilateral Screening [facility] Path report.final Dx Spec [facility] Immunizations Immunization Date Immunization Notes Care Provider Fa aleksandr 06-01-2021 Covid (Pfizer) WORKFORCE ANALYST-C Scar [place] er WORKFORCE ANALYST Work Phone: [facility] 01-11-2021 influenza, injectable,quadrivalent , preservative free, general pediatrician-C Scar Munsonder WORKFORCE ANALYST Work Phone: [facility] 08-12-2020 Covid (Pfizer) WORKFORCE ANALYST-C Scar [place] WORKFORCE ANALYST Work Phone: [facility] 07-22-2020 Covid (Pfizer) WORKFORCE ANALYST-C Scar [place] WORKFORCE ANALYST Work Phone: [facility] Payers Date Payer Category Payer Self-pay [id number] 2023 Unknown [id number] Unknown [id number] [id number] Unknown [id number] [id number] Unknown [id number] [id number] [id number] Unknown [id number] [id number] Social History Date Type Detail Facility Start: 01-23-2022 End: 07-04-2023 Tobacco smoking status NHIS Unknown if ever smoked [facility] Start: 1965 Sex Assigned At Female [facility] Start: 07-04-2023 Tobacco smoking stat us NHIS Never smoked tobacco (finding) [facility] Evaluation note 10-30-2024 Note Date & Type Note Facility 10-30-2024 Evaluation note Diagnosis Onset Date Resolution History of partial hysterectomy acute October 30, 2024 2:44pm Yeast vaginitis acute October 2:44pm Encounter for routine gynecological examination noneactive October 30, 2024 2:44pm [facility] Work Phone: Progress note 10-30-2024 Note Date & Type Note Facility 10-30-2024 Progress note [facility] Progress note 10-30-2024 Note Date & Type Note Facility 10-30-2024 Progress note Note Date/Time October 30, 2024 3:15pm [facility] [address], [address] [place] [address] OFFICE VISIT Date of Service: 10/30/24 MR#: [id number] Acct: [id number] Name: MONSERRAT LEMUS Rep #: [id number] : 1965 Provider: Dr. 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) [employer] Specialist Required: No Is patient in pain?: No Allergies No Known Allergies Allergy (Verified 10/30/24 14:49) Medications ?Medication ?Instructions ?Recorded ?Confirmed ?Type venlafaxine 150 mg tablet,extended 150 mg PO DAILY #90 tabs 06/11/22 10/30/24 Rx release 24 hr atorvastatin 10 mg tablet 10 mg PO DAILY #90 tabs 07/0610/30/24 Rx hydrochlorothiazide 25 mg tablet 25 mg PO QAM #90 tabs 08/03/22 10/30/24 Rx omeprazole 40 mg capsule,delayed 40 mg PO DAILY #90 ca ps 08/03/22 10/30/24 Rx release metformin 850 mg tablet 850 mg PO BID #270 tabs 08/2610/30/24 Rx valsartan 80 mg tablet 80 mg PO DAILY #90 tabs 10/0610/30/24 Rx empagliflozin 25 mg tablet 12.5 mg PO DAILY 07/04/23 0 10/30/24 History (Jardiance) tirzepatide 12.5 mg/0.5 mL mg subcut Diabetes 10/30/24 10/30/24 History subcutaneous pen injector (Spikeunshakeelro) Is last menstrual period known: No Post menopausal: Yes Patient : No : No PFSH Medical History Acute frontal sinusitis, unspecified Acute pharyngitis Acute sinusitis, unspecified Depression Diabetes Hypertension Surgical History Status post oophorectomy History of partial hysterectomy Family History Father Diabetes Hypertension Kidney transplanted Sister Diabetes Brother Diabetes Social History Smoking Status: Never smoker alcohol intake: never substance use type: does not use caffeine: Yes what type of physical activity do you participate in: none seatbelt use: always do you feel safe at home: Yes additional social history: - [employer] Patient works at [employer] History 2 Elective abortions Hx Para 2 Spontaneous abortions Hx # Term Pregnancies Ectopic pregnancies Hx # Pregnancies Multiple births # of living children Past Pregnancies Del. Date Name GA/Weeks Outcome Route Bth Weight Infant Gen Labor Lgth Anesthesia Del Locatn Provider FOB Unknown Brendan Unknown Emily HPI Encounter for routine gynecological examination Details: MONSERRAT LEMUS is a 59 year old who presents for annual exam.only 1 yeast infecitonthis year Last PAP: 01/14/2020 - normal History of abnormal PAP: Last mammogram: 07/15/2023 - normal History of abnormal mammogram: Colon cancer screening: Other preventative health care screenings: PCP [place] Female Reproductive History Menopausal Symptoms: No hot flashes, No night sweats, No difficulty concentrating and No change in libido ROS Const Constitutional: Reports as per HPI; Denies fatigue, increased appetite, poor appetite, night sweats, weight gain or weight loss Cardio Card: Denies chest pain Resp Resp: Denies cough or dyspnea GI GI: Reports as per HPI; Denies abdominal pain, bloating, constipation, nausea or vomiting : Reports as per HPI and other; Denies difficulty voiding, dysuria, hematuria, hot flashes, nipple discharge, pelvic pain, prolapse symptoms, urinary frequency, urinary incontinence, urinaryurgency, vaginal discharge, vaginal dryness, vaginal odor or vaginal pruritus Skin Skin/Breast: Denies changing lesions, breast mass, breast pain, breast skin changes or nipple discharge Psych Psych: Denies anxiety, change in libido, depression or difficulty concentrating Exam Const General: cooperative, healthy appearing, comfortable, no acute distress, well developed and well groomed [facility] Head: normal to inspection and normocephalic Ears: hearing grossly normal bilaterally and external ears normal Nose: external nose normal Face and sinus: normal facial exam Neck Neck: normal visual inspection, full ROM and no lymphadenopathy Thyroid: thyroid normal Chest Chest palpation & inspection: normal inspection of the chest Breast inspection: normal inspection of the breasts and normal inspection of theaxillae Breast palpation: normal palpation of the breasts, normal palpation of the axillae and no axillary lymphadenopathy Resp Effort & Inspection: normal respiratory effort GI Inspection: normal to inspection and non-distended Palpation: soft, no hepatosplenomegaly and no guarding General: bladder normal to palpation External Female Exam: normal external appearance, normal appearance of the urethra and no lesions Urethra: normal appearance of the urethra and normal palpation Speculum Exam - Vagina: normal appearance of the vagina and normal vaginal discharge Speculum Exam - Cervix: normal appearance of the cervix, no cervical discharge and no lesions Bimanual Exam- Vagina & Uterus: bladder normal to palpation and no cervical motion tenderness Bimanual Exam- Adnexa, other: normal adnexae, no masses and non-tender Skin General: no rashes or lesions noted Neuro General: patient alert, moves all extremities and no focal motor deficits Extrem General: normal to inspection and no pedal edema Psych Appearance: grossly normal Mental Status: mental status grossly normal Affect: normal affect Speech and Movement: speech and movement normal Attitude: cooperative Coding Level of Care Code Off vis,est,prev 40-64yrs Diagnoses Encounter for gynecological examination with abnormal finding Z01.411 Gynecological examination findings: abnormal findings PRESENT Yeast vaginitis B37.31 History of partial hysterectomy Z90.711 Assessment and Plan Assessment and Plan (1) Encounter for routine gynecological examination: Qualifiers: Gynecological examination findings: abnormal findings PRESENT QualifiedCode(s): Z01.411 - Encounter for gynecological examination (general) (routine) with abnormal findings (2) Yeast vaginitis: Status: Acute Comment: has had 3 infections in the last 6 months, reviewed if she has any more recommend vaginal culture for yeast and BV and recommend 6 month antifungal vaginal weekly suppressive therapy. (3) History of partial hysterectomy: Status: Acute Comment: 2009 - still has cervix, needs pap smears. due 2024 Orders: Orders [facility] MAMM (CAD)W/LORI BILAT Today Z12.31 - Encounter for screening mammogram for malignant neoplasm of breast PAP IG HPV APTIMA 16/18,45 Today Z12.4 - Encounter for screening for malignant neoplasm of cervix Plan Cervical cancer screening: pap due now Breast cancer screening: mamm other health maintenance examination reviewed and orders placed if needed. Encouraged maintenance of a healthy weight and active lifestyle and handout given. Annual exam handout including recommendations for good health guidelines, Calcium/vitamin D recommendations, and basic screening information given. Problem list up to date, see problem list details for any additional plan information. Follow up in one year for annual health maintenance exam or sooner if needed. 10/30/24 6550 <Electronically signed by Niki angela MD> Date _ Niki Puente MD Cosigner Signature: Date (if applicable) CC: ~ [facility] Work Phone: Evaluation note Note Date & Type Note Facility Evaluation note Diagnosis Onset Date Diabetes chronic Hypertension chronic Type 2 diabetes mellitus chr onic Urinary frequency noneactive Influenza vaccination admini stered at current visit noneactive [facility] Work Phone: Evaluation note Note Date & Type Note Facility Evaluation note Diagnosis Onset Date Hypertension chronic Type 2 diabetes mellitus chr onic Encounter for routine gyneco logical examination noneactive [facility] Work Phone: Evaluation note Note Date & Type Note Facility Evaluation note Diagnosis Onset Date Depression chronic Hypertension chronic Type 2 diabetes mellitus chr onic [facility] Work Phone: Evaluation note Note Date & Type Note Facility Evaluation note Diagnosis Onset Date History of partial hysterectomy acute Yeast vaginitis acute Encounter for routine gyneco logical examination noneactive [facility] Work Phone: Evaluation note Note Date & Type Note Facility Evaluation note Diagnosis Onset Date Resolution History of partial hysterectomy acute October 30, 2024 2:44pm Yeast vaginitis acute October 2:44pm Encounter for routine gynecological examination noneactive October 30, 2024 2:44pm [facility] Work Phone: Reason for referral (narrative) Note Date & Type Note Facility Reason for referral (narrative) No reason for referral information available [facility] Work Phone: Summary Purpose Family History No Family History Records Found Relationship Condition Age at Onset Recorded Date/T angela father Diabetes mellitus Unknown Hypertension Unknown Status post kidney transplant Unknown sister Diabetes mellitus Unknown brother Diabetes mellitus Unknown Advance Directives No Advanced Directives Records FoundNo Advanced Directives Records FoundNo Advanced Directives Records FoundNo Advanced Directives Records Found Chief Complaint and Reason for Visit Chief Complaint Admit Date Annual (RN TESTING) October 30, 2024 2:44 pm screening mammogram November 10, 2024 12:06 pm Reason for Visit Admit Date History of partial hysterectomy October 2:44pm Yeast vaginitis October 30, 2024 2:44 pm Encounter for routine gynecological exam ination October 30, 2024 2:44pm Chief Complaint 3 M FU 3 M FU Reason for Visit Diabetes Hypertension Type 2 diabetes mellitus Urinary frequency Influenza vaccination administered at current visit Chief Complaint 4 M FU Annual (RN TESTING) POST ACCIDENT/NON DOT/DRUG SCREEN/BATPALLOTTA SCREENING Reason for Visit Hypertension Type 2 diabetes mellitus Encounter for routine gynecological examination Chief Complaint POST ACCIDENT/NON DO T/DRUG SCREEN/BATPALLOTTA SCREENING 3 M FU Reason for Visit Depression Hypertension Type 2 diabetes mellitus Chief Complaint Annual (RN TESTING) SCREENING Reason for Visit History of partial h ysterectomy Yeast vaginitis Encounter for routine gynecological examination Chief Complaint Admit Date Annual (RN TESTING) October 30, 2024 2:44 pm Additional Source Comments INFORMATION SOURCE (unrecogn ized section and content) DATE CREATED AUTHOR 12/28/2017 [facility] DATE CREATED AUTHOR AUTHOR'S ORGANIZ ATION 09/27/2018 [facility] DATE CREATED AUTHOR AUTHOR'S ORGANIZ ATION 10/13/2018 [facility] DATE CREATED AUTHOR AUTHOR'S ORGANIZ ATION 11/24/2024 [facility] Goals (unrecognized section and content) Goals may be documented in a n alternate sectionGoals may be documented in an alternate sectionGoals may be documented in an alternate sectionGoals may be documented in an alternate sectionGoals may be documented in an alternate sectionGoals may be documented in an alternate sectionGoals may be documented in an alternate section Care Teams (unrecognized sec tion and content) Team Status: Active Member Role Status Dates Scar Eckert WORKFORCE ANALYST, WORKFORCE ANALYST-C Primary Care Provider Active Team Status: Inactive Member Role Status Dates Scar Eckert WORKFORCE ANALYST, WORKFORCE ANALYST-C Primary Care Provider, Referring P rovider Active Dr. Niki Puente MD Attending Provider Active Team Status: Inactive Member Role Status Dates Scar Eckert WORKFORCE ANALYST, WORKFORCE ANALYST-C Primary Care Provide r, Attending Provider, Referring Provider Active Team Status: Inactive Member Role Status Dates Scar Eckert WORKFORCE ANALYST, WORKFORCE ANALYST-C Primary Care Provider, Referring P rovider Active Juan C Chahal PA, PA Attending Provider Active Team Status: Inactive Member Role Status Dates Scar Eckert WORKFORCE ANALYST, WORKFORCE ANALYST-C Primary Care Provider Active Dr. Niki Puente MD Attending Provider Active Team Status: Inactive Member Role Status Dates Dr. Niki Puente MD Attending Provider, Referr ing Provider Active Team Status: Active Member Role/Relationship Status Dates Scar Eckert VSC, WORKFORCE ANALYST-C Primary Care Provider Active Team Status: Inactive Member Role/Relationship Status Dates Scar Eckert VSC, WORKFORCE ANALYST-C Primary Care Provider Active Start: October 30, 2024 End: October 30, 2024 Scar Eckert VSC, WORKFORCE ANALYST-C Referring Provider Active S tart: October 30, 2024 End: October 30, 2024 Dr. Niki Puente MD Attending Provider Active Start: October 30, 2024 End: October 30, 2024 Team Status: Inactive Member Role/Relationship Status Dates Scar Eckert VSC, WORKFORCE ANALYST-C Primary Care Provider Active Start: October 30, 2024 End: October 30, 2024 Dr. Ольга Barger DO Attending Provider Activ e Start: October 30, 2024 End: October 30, 2024 Dr. Ольга Barger DO Referring Provider Activ e Start: October 30, 2024 End: October 30, 2024 Team Status: Inactive Member Role/Relationship Status Dates Scar Eckert SONIA, WORKFORCE ANALYST-C Primary Care Provider Active Start: November 10, 2024 End: November 10, 2024 Dr. Niki Puente MD Attending Provider Active Start: November 10, 2024 End: November 10, 2024 Dr. Niki Puente MD Referring Provider Active Start: November 10, 2024 End: November 10, 2024 FOR RECORDS PERTAINING TO PATIENTS WHO ARE OR HAVE BEEN ENROLLED IN A CHEMICAL DEPENDENCY/SUBSTANCEABUSE PROGRAM, SOME INFORMATION MAY BE OMITTED. This clinical summary was aggregated from multiple sources. Caution should be exercised in using it in the provision of clinical care. This summary normalizes information from multiple sources, and as a consequence, information in this document may materially change the coding, format and clinical context of patient data. In addition, data may be omitted in some cases. CLINICAL DECISIONS SHOULD BE BASED ON THE PRIMARY CLINICAL RECORDS. [facility] [employer] provides no warranty or guarantee of the accuracy or completeness of information in this document.
[2024-12-09 18:19] LABS: Microalbumin,Random Urine 19.9 mg/L (<20 mg/L)
== END | disposition home or self-care (01) ==
LOC: VSLAB 13:40
PROVIDERS: PCP Nurse Practitioner Family; Visit Provider Nurse Practitioner Family
DX: E11.9 Type 2 diabetes mellitus without complications (principal)
CPT/HCPCS: 36415; 80053; 80061; 82043; 82306; 82607; 84443; 85025

== ENCOUNTER → 2025-01-15 | Outpatient (CLI) | payer OTHER, SELFPAY ==
[2025-01-15 13:06] LABS: Color, Urine Yellow (Yellow); Glucose, Dipstick 1000 mg/dl (Normal); Ketone-Dipstick Negative (Negative); Leukocyte Esterase-Dipstick Negative /ul (Negative); Nitrite-Dipstick Negative (Negative); Occult Blood-Urine 50 /ul (Negative); Protein-Dipstick 30 mg/dl (Negative); Specific Gravity, Urine 1.005 (1.002-1.030); Urine Bilirubin Dipstick Negative (Negative)
[2025-01-15 13:10] LABS: Anion Gap 16 (5-15); BUN 17 mg/dL (4-19); BUN/Creat Ratio 23.5 RATIO (10-20); Calcium,Total 10.0 mg/dL (7.6-11.0); Carbon Dioxide 25.0 mmol/L (21.0-32.0); Chloride 100 mmol/L (98-108); Glucose 123 mg/dL (70-99); Potassium 2.9 mmol/L (3.3-5.1)
--- OUTSIDE RECORDS SUMMARY | 2025-01-15 16:46 | XMS RPT_ITS | CCD ---
Author Organization [facility] CliniSyd[facility] Care Team Providers Care Salesforce Administrator Name Role Phone Eckert FOUNDRY SUPERVISOR, FOUNDRY SUPERVISOR-C Scar Primary Care Provider Eckert FOUNDRY SUPERVISOR, FOUNDRY SUPERVISOR-C Scar Attending Provider [phone] Eckert FOUNDRY SUPERVISOR, FOUNDRY SUPERVISOR-C Scar Referring Provider [phone] Eckert FOUNDRY SUPERVISOR, FOUNDRY SUPERVISOR-C Scar Primary Care Provider Eckert FOUNDRY SUPERVISOR, FOUNDRY SUPERVISOR-C Scar Attending Provider [phone] Eckert FOUNDRY SUPERVISOR, FOUNDRY SUPERVISOR-C Scar Referring Provider [phone] Dr. Niki Puente Attending Provider [phone] Fela BURRELL, INDRA Josue Attending Provider [employer] FOUNDRY SUPERVISOR, FOUNDRY SUPERVISOR-C Scar Primary Care Provider Eckert FOUNDRY SUPERVISOR, FOUNDRY SUPERVISOR-C Scar Referring Provider Eckert FOUNDRY SUPERVISOR, FOUNDRY SUPERVISOR-C Scar Attending Provider Eckert FOUNDRY SUPERVISOR, FOUNDRY SUPERVISOR-C Scar Primary Care Provider Eckert FOUNDRY SUPERVISOR, FOUNDRY SUPERVISOR-C Scar Referring Provider [phone] Dr. Niki Puente Attending Provider Eckert FOUNDRY SUPERVISOR-C, Scar Primary Care Provider Eckert FOUNDRY SUPERVISOR-C, Scar Referring Provider Dr. Niki Puente MD Attending Provider Dr. Ольга Barger DO Attending Provider Dr. Ольга Barger DO Referring Provider Dr. Niki Puente MD Referring Provider Eckert FOUNDRY SUPERVISOR-C, Scar Attending Provider Ольга Barger Attending Unavailmars e Ольга Barger Referring Unavailabl e Eckert VSC, Scar Primary Care Unavailable Niki Puente Attending Unavailable Niki Puente Referring Unavailable Eckert VSC, Scar Primary Care Unavailable Eckert VSC, Scar Primary Care Unavailable Eckert VSC, Scar Attending Unavailable Eckert VSC, Scar Referring Unavailable Niki Puente Attending Unavailable Eckert VSC, Scar Primary Care Unavailable Eckert FOUNDRY SUPERVISOR, Scar Referring Unavailable Niki Puente Attending Unavailable Eckert VSC, Scar Primary Care Unavailable Medications Current Medications Medication Drug Class(es) Dates Sig (Normalized) Sig (Original) fluconazole 150 mg oral tablet (7 sources) Azole Antifungal Start: 11-10-2024 Fluconazole 150 [...] mg PO THREE TIMES A DAY 270 November 14, 2020 1:43pm July 11, 2021 10:06am nystatin 100 unt/mg topical powder (4 sources) Polyene Antifungal Start: 10-30-2024 Nystatin (N ystop) 100,000 unit/gram powder Active 1 NMA TOPICAL TWICE A DAY 45 7 October 30, 2024 12:00am Tirzepatide (1 source) Start: 07-04-2023 Tirzepatide Ac tive 10 MG SC EVERY WEEK July 04, 2023 1:00am Tirzepatide (Mounjaro) 12.5 mg/0.5 mL pen injector (4 sources) Start: 10-30-2024 Tirzepatide (Mounjaro) 12.5 mg/0.5 mL pen injector Active mg SC October 30, 2024 12:00am Diabetes valsartan 80 mg oral tablet (5 sources) Angiotensin 2 Receptor Jeff Start: 11-02-2022 [...] 2021 10:06am azithromycin 250 mg oral tablet (8 sources) Macrolide Antimicrobial Start: 06-07-2020 End: 06-22-2020 [...] 20 mg PO TWICE A DAY 180 3 August 07, 2022 9:09am November 02, 2022 8:00am estradiol 0.1 mg/ml vaginal cream (5 sources) Estrogen Start: 07-04-2023 End: 10-30-2024 Estradiol [...] Microspheres (Bydureon) 2 mg/0.65 mL pen injector (8 sources) Start: 08-19-2019 End: 02-24-2020 Exenatide Microspheres (Bydureon) 2 mg/0.65 mL pen injector Discontinued 2 mg SC Q7D 12 August 19, 2019 8:19am February 24, 2020 8:34am Start: 04-07-2018 End: 08-19-2019 Exenatide Microspheres (Bydu reon) 2 mg/0.65 mL pen injector Discontinued 2 mg SC Q7D April 07, 2018 1:00am August 19, 2019 8:21am glimepiride 1 mg oral tablet (8 sources) Sulfonylurea Start: 04-07-2018 End: 04-24-2019 take 1 tablet by mouth once daily in the morning Glimepiride 1 mg tablet Discontinued 1 mg PO EVERY MORNING April 07, 2018 1:00am April 24, 2019 12:42pm hydroCHLOROthiazide 25 mg oral tablet (20 sources) Thiazide Diuretic Start: 05-14-2022 End: 08-03-2022 [...] hydrochloride 20 mg/ml mucous membrane topical solution (8 sources) Antiarrhythmic, Amide Local Anesthetic Start: 06-07-2020 End: 09-28-2020 Lidocaine Hcl (Lidocaine Viscous) 2 % solution Discontinued 1 NMA MUCOUS MEM THREE TIMES A DAY as needed for pain 100 1 June 07, 2020 1:00am September 28, 2020 4:25pm nitrofurantoin, macrocrystals 25 mg / nitrofurantoin, monohydrate 75 mg oral capsule (8 sources) Nitrofuran Antibacterial Start: 01-25-2022 End: 01-30-2022 [...] release(DR/EC) Discontinued 40 mg PO DAILY 90 May 20, 2019 2:44pm August 19, 2019 8:21am pantoprazole 40 mg delayed release oral tablet (8 sources) Proton Pump Inhibitor Start: 02-24-2020 End: 06-23-2020 take 1 tablet by mouth once daily Pantoprazole 40 mg tablet,delayed release (DR/EC) Discontinued 40 mg PO DAILY 90 February 24, 2020 12:00am June 23, 2020 10:36am penicillin v potassium 500 mg oral tablet (13 sources) Start: 11-02-2022 End: 11-12-2022 take 1 [...] 2020 9:06am predniSONE 10 mg oral tablet (8 sources) Start: 12-05-2020 End: 12-17-2020 Prednisone 10 [...] Discontinued 1 M G SC EVERY WEEK March 09, 2022 3:27pm May 01, 2022 [...] mg/d ose (2 mg/1.5 mL) pen injector (12 sources) Start: 07-11-2021 End: 03-09-2022 Semaglutide (Ozempic) 1 mg/d ose (2 mg/1.5 mL) pen injector Discontinued 1 mg SC EVERY WEEK 3 July 11, 2021 10:06am March 09, 2022 3:27pm Start: 02-13-2021 End: 07-11-2021 Semaglutide (Ozempic) 1 mg/d ose (2 mg/1.5 mL) pen injector Discontinued 1 mg SC EVERY WEEK 3 3 February 13, 2021 8:41am July 11, 2021 10:06am Start: 02-24-2020 End: 02-13-2021 Semaglutide (Ozempic) 1 mg/d ose (2 mg/1.5 mL) pen injector Discontinued 1 mg SC EVERY WEEK 3 February 24, 2020 12:00am February 13, 2021 8:41am Semaglutide 1 mg/dose (2 mg/ 1.5 mL) pen injector (8 sources) Start: 05-01-2022 End: 11-02-2022 Semaglutide 1 [...] 2 mg/dose (8 mg/3 mL) pen injector (4 sources) Start: 11-02-2022 End: 07-04-2023 Semaglutide 2 mg/dose (8 mg/3 mL) pen injector Discontinued 2 mg SC EVERY WEEK 9.75 90 3 November 02, 2022 7:51am July 04, 2023 9:55am Type 2 diabetes mellitus Type 2 diabetes mellitus without complications Tirzepatide 10 mg/0.5 mL pen injector (4 sources) Start: 07-04-2023 End: 10-30-2024 Tirzepatide 10 [...] Problem Date Documented Date Episodic/Chronic Allergic reactions (8 sources) Irritant contact dermatitis due to plant; Translations: [Irritant contact dermatitis due to plants, except food] 12-05-2020 Episodic Diabetes mellitus without complication (20 sources) Diabetes mellitus; Translations: [Type 2 diabetes mellitus without complications] Onset: 12-17-2024 Chronic Esophageal disorders (8 sources) Gastroesophageal reflux disease; Translations: [Gastro-esophageal reflux disease without esophagitis] 02-24-2020 Chronic Essential hypertension (11 sources) Hypertensive disorder; Translations: [Essential (primary) hypertension] Chronic Genitourinary symptoms and ill-defined conditions (1 source) Frequency of micturition; Translations: [Urinary frequency] Episodic Immunizations and screening for infectious disease (9 sources) Contact with and (suspected) exposure to other viral communicable diseases; Translations: [Contact with or suspected exposure to other viral communicable disease] Episodic Mood disorders (9 sources) Depressive disorder; Translations: [Depression] 02-24-2020 Chronic Mycoses (10 sources) Candidiasis of vagina; Translations: [Candidiasis of vagina] 07-04-2023 Episodic Comment on above: has had 3 infections in the last 6 months, reviewed if she has any more recommend vaginal culture for yeast and BV and recommend 6 month antifungal vaginal weekly suppressive therapy. Other ear and sense organ disorders (13 sources) Impacted cerumen; Translations: [Impacted cerumen, right [...] vulva and vagina] Onset: 10-30-2024 Viral infection (8 sources) Disease caused by 2019-nCoV; Translations: [COVID-19] 01-31-2021 Episodic Results Test Name Value Interpretation Reference Range Facility Absolute lymphocyte countOrd ered By: Scar Tomeka on 12-09-2024 Lymphocytes Auto (Unsp spec) [#/Vol] 2.33 10*3/uL 0.83-4.51 [facility] Absolute neutrophil countOrd ered By: Scar Tomeka on 12-09-2024 Neutrophils (Bld) [#/Vol] 3.5 10*3/uL 2.0-7.7 [facility] Anion gap in Serum or Plasma Ordered By: Scar Eckert on 12-09-2024 Anion gap [Moles/Vol] 18 mmol/L High 5-15 [facility] Automated lymphocyte count a s percentage of total leukocytesOrdered By: Scar Eckert on 12-09-2024 Lymphocytes/100 WBC Auto (Unsp spec) 36.0 % 19-41 [facility] BUN/creatinine ratioOrdered By: Scar Eckert on 12-09-2024 Urea nitrogen/Creatinine [Mass ratio] 26.5 mg/mg High 10-20 [facility] Basophil percentageOrdered B y: Scar Eckert on 12-09-2024 Basophils/100 WBC (Bld) 0.8 % 0-1 [facility] Bilirubin, totalOrdered By: Scar Eckert on 12-09-2024 Bilirubin [Mass/Vol] 0.74 mg/dL 0.00-1.30 [facility] CBC W/Diff, Automatedon Absolute Lymph 2.33 X10 3/uL Normal 0.83-4.51 [facility] Comment on above: Performed By: #### L 503.0106, L501.9520, L100.0100, L500.4100, L502.0500, L506.1001, L500.4050 #### [facility] [address] [place], [address] Absolute Neut 3.5 X10 3/uL Normal 2.0-7.7 [facility] Comment on above: Performed By: #### L 503.0106, L501.9520, L100.0100, L500.4100, L502.0500, L506.1001, L500.4050 #### [facility] [address] [place], [address] Basophils/100 WBC (Bld) 0.8 % Normal 0-1 [facility] Comment on above: Performed By: #### L 503.0106, L501.9520, L100.0100, L500.4100, L502.0500, L506.1001, L500.4050 #### [facility] [address] [place], [address] Eosinophils/100 WBC (Bld) 2.3 % Normal 0-5 [facility] Comment on above: Performed By: #### L 503.0106, L501.9520, L100.0100, L500.4100, L502.0500, L506.1001, L500.4050 #### [facility] [address] [place], [address] Erythrocyte distribution width (RBC) [Ratio] 14.3 % Normal 11.6-14.6 [facility] Comment on above: Performed By: #### L 503.0106, L501.9520, L100.0100, L500.4100, L502.0500, L506.1001, L500.4050 #### [facility] [address] [place], [address] Hematocrit (Bld) [Volume fraction] 38.9 % Normal 37-47 [facility] Comment on above: Performed By: #### L 503.0106, L501.9520, L100.0100, L500.4100, L502.0500, L506.1001, L500.4050 #### [facility] [address] [place], [address] Hemoglobin (Bld) [Mass/Vol] 12.5 g/dL Normal 12.0-15.0 [facility] Comment on above: Performed By: #### L 503.0106, L501.9520, L100.0100, L500.4100, L502.0500, L506.1001, L500.4050 #### [facility] [address] [place], [address] IG% 0.200 Normal 0.0-0.9 [facility] Comment on above: Result Comment: IG% - Immature Granulocytes (promyelocytes, myelocytes and metamyelocytes) > 1% indicates that a LEFT SHIFT is Present. Performed By: #### L 503.0106, L501.9520, L100.0100, L500.4100, L502.0500, L506.1001, L500.4050 #### [facility] [address] [facility], [address] Lymphocytes/100 WBC (Bld) 36.0 % Normal 19-41 [facility] Comment on above: Performed By: #### L 503.0106, L501.9520, L100.0100, L500.4100, L502.0500, L506.1001, L500.4050 #### [facility] [address] [place], [address] MCH (RBC) [Entitic mass] 24.7 pg Low 27.0-32.0 [facility] Comment on above: Performed By: #### L 503.0106, L501.9520, L100.0100, L500.4100, L502.0500, L506.1001, L500.4050 #### [facility] [address] [place], [address] MCHC (RBC) [Mass/Vol] 32.1 g/dL Normal 32-36 [facility] Comment on above: Performed By: #### L 503.0106, L501.9520, L100.0100, L500.4100, L502.0500, L506.1001, L500.4050 #### [facility] [address] [place], [address] MCV (RBC) [Entitic vol] 76.7 fL Low 81-99 [facility] Comment on above: Performed By: #### L 503.0106, L501.9520, L100.0100, L500.4100, L502.0500, L506.1001, L500.4050 #### [facility] [address] [place], [address] Monocytes/100 WBC (Bld) 7.0 % Normal 0-10 [facility] Comment on above: Performed By: #### L 503.0106, L501.9520, L100.0100, L500.4100, L502.0500, L506.1001, L500.4050 #### [facility] [address] [place], [address] Neutrophils/100 WBC (Bld) 53.7 % Normal 47-70 [facility] Comment on above: Performed By: #### L 503.0106, L501.9520, L100.0100, L500.4100, L502.0500, L506.1001, L500.4050 #### [facility] [address] [place], [address] Nucleated RBC (Bld) [#/Vol] 0 10*3/uL Normal 0-5 [facility] Comment on above: Performed By: #### L 503.0106, L501.9520, L100.0100, L500.4100, L502.0500, L506.1001, L500.4050 #### [facility] [address] [place], [address] Platelet mean volume (Bld) [Entitic vol] 9.5 fL Normal 6.2-12.0 [facility] Comment on above: Performed By: #### L 503.0106, L501.9520, L100.0100, L500.4100, L502.0500, L506.1001, L500.4050 #### [facility] [address] [place], [address] Platelets (Bld) [#/Vol] 524 10*3/uL High 150-450 [facility] Comment on above: Performed By: #### L 503.0106, L501.9520, L100.0100, L500.4100, L502.0500, L506.1001, L500.4050 #### [facility] [address] [place], [address] RBC (Bld) [#/Vol] 5.07 10*6/uL Normal 4.2-5.4 [facility] Comment on above: Performed By: #### L 503.0106, L501.9520, L100.0100, L500.4100, L502.0500, L506.1001, L500.4050 #### [facility] [address] [place], [address] RDW SD 39.0 fl Normal 35.1-43.9 [facility] Comment on above: Performed By: #### L 503.0106, L501.9520, L100.0100, L500.4100, L502.0500, L506.1001, L500.4050 #### [facility] [address] [place], [address] WBC (Bld) [#/Vol] 6.5 10*3/uL Normal 4.4-11.0 [facility] Comment on above: Performed By: #### L 503.0106, L501.9520, L100.0100, L500.4100, L502.0500, L506.1001, L500.4050 #### [facility] [address] [place], [address] Calculated very low density lipoprotein (VLDL) cholesterol measurementOrdered By: Scar Eckert on 12-09-2024 Calculated very low density lipoprotein (VLDL) cholesterol measurement 22 mg/dL 5-40 [facility] Carbon dioxide, total [Moles /volume] in Central venous bloodOrdered By: Scar Eckert on 12-09-2024 CO2 [Moles/Vol] 22.3 mmol/L 21.0-32.0 [facility] Chloride assayOrdered By: Ángel Eckert on 12-09-2024 Chloride [Moles/Vol] 98 mmol/L 98-108 [facility] Comprehensive Metabolic Prof ilon 12-09-2024 Albumin [Mass/Vol] 4.6 g/dL Normal 3.5-5.0 [facility] Comment on above: Performed By: #### L 503.0106, L501.9520, L100.0100, L500.4100, L502.0500, L506.1001, L500.4050 #### [facility] [address] [place], [place], [phone] ([phone]) Albumin/Globulin [Mass ratio] 1.5 {ratio} Normal 0.9-2.4 [facility] Comment on above: Performed By: #### L 503.0106, L501.9520, L100.0100, L500.4100, L502.0500, L506.1001, L500.4050 #### [facility] [address] [place], [place], [id number] ALK PHOS 59 U/L Normal 35-104 [facility] Comment on above: Performed By: #### L 503.0106, L501.9520, L100.0100, L500.4100, L502.0500, L506.1001, L500.4050 #### [facility] [address] [place], [place], [phone] ([phone] ALT [Catalytic activity/Vol] 17 U/L Normal <=34 [facility] Comment on above: Performed By: #### L 503.0106, L501.9520, L100.0100, L500.4100, L502.0500, L506.1001, L500.4050 #### [facility] [address] [place], [address] AST [Catalytic activity/Vol] 20 U/L Normal <=31 [facility] Comment on above: Performed By: #### L 503.0106, L501.9520, L100.0100, L500.4100, L502.0500, L506.1001, L500.4050 #### [facility] [address] [place], [address] Bilirubin [Mass/Vol] 0.74 mg/dL Normal 0.00-1.30 [facility] Comment on above: Performed By: #### L 503.0106, L501.9520, L100.0100, L500.4100, L502.0500, L506.1001, L500.4050 #### [facility] [address] [place], [address] BUN/CRE 26.5 RATIO High 10-20 [facility] Comment on above: Performed By: #### L 503.0106, L501.9520, L100.0100, L500.4100, L502.0500, L506.1001, L500.4050 #### [facility] [address] [place], [address] Calcium [Mass/Vol] 10.0 mg/dL Normal 7.6-11.0 [facility] Comment on above: Performed By: #### L 503.0106, L501.9520, L100.0100, L500.4100, L502.0500, L506.1001, L500.4050 #### [facility] [address] [place], [address] Chloride [Moles/Vol] 98 mmol/L Normal 98-108 [facility] Comment on above: Performed By: #### L 503.0106, L501.9520, L100.0100, L500.4100, L502.0500, L506.1001, L500.4050 #### [facility] [address] [place], [address] CO2 [Moles/Vol] 22.3 mmol/L Normal 21.0-32.0 [facility] Comment on above: Performed By: #### L 503.0106, L501.9520, L100.0100, L500.4100, L502.0500, L506.1001, L500.4050 #### [facility] [address] [place], [place], [phone] (816) Creatinine [Mass/Vol] 0.81 mg/dL Normal 0.70-1.20 [facility] Comment on above: Performed By: #### L 503.0106, L501.9520, L100.0100, L500.4100, L502.0500, L506.1001, L500.4050 #### [facility] [address] [place], [place], [id number] GAP 18 High 5-15 [facility] Comment on above: Performed By: #### L 503.0106, L501.9520, L100.0100, L500.4100, L502.0500, L506.1001, L500.4050 #### [facility] [address] [place], [place], [phone] (853) GFR/1.73 sq M.predicted among non-blacks MDRD (S/P/Bld) [Vol rate/Area] 85 mL/min/{1.73_m2} Normal >60 [facility] Comment on above: Result Comment: mL/m in/1.73m2 CKD-EPI Creatinine Equation (2020) Performed By: #### L 503.0106, L501.9520, L100.0100, L500.4100, L502.0500, L506.1001, L500.4050 #### [facility] [address] [place], [address] Globulin (S) [Mass/Vol] 3.1 g/dL Normal 2.2-4.2 [facility] Comment on above: Performed By: #### L 503.0106, L501.9520, L100.0100, L500.4100, L502.0500, L506.1001, L500.4050 #### [facility] [address] [place], [address] Glucose [Mass/Vol] 123 mg/dL High 70-99 [facility] Comment on above: Performed By: #### L 503.0106, L501.9520, L100.0100, L500.4100, L502.0500, L506.1001, L500.4050 #### [facility] [address] [place], [address] Potassium [Moles/Vol] 3.2 mmol/L Low 3.3-5.1 [facility] Comment on above: Performed By: #### L 503.0106, L501.9520, L100.0100, L500.4100, L502.0500, L506.1001, L500.4050 #### [facility] [address] [place], [address] Sodium [Moles/Vol] 138 mmol/L Normal 133-145 [facility] Comment on above: Performed By: #### L 503.0106, L501.9520, L100.0100, L500.4100, L502.0500, L506.1001, L500.4050 #### [facility] [address] [place], [address] T PROT 7.7 g/dL Normal 5.9-8.4 [facility] Comment on above: Performed By: #### L 503.0106, L501.9520, L100.0100, L500.4100, L502.0500, L506.1001, L500.4050 #### [facility] [address] [place], [place], [id number] Urea nitrogen [Mass/Vol] 21 mg/dL High 4-19 [facility] Comment on above: Performed By: #### L 503.0106, L501.9520, L100.0100, L500.4100, L502.0500, L506.1001, L500.4050 #### [facility] [address] [place], [place], [id number] Eosinophil percentageOrdered By: Scar Eckert on 12-09-2024 Eosinophils/100 WBC (Bld) 2.3 % 0-5 [facility] Erythrocyte distribution wid th ratioOrdered By: Scar Eckert on 12-09-2024 Erythrocyte distribution width (RBC) [Ratio] 14.3 % 11.6-14.6 [facility] Erythrocyte distribution wid th standard deviationOrdered By: Scar Eckert on 12-09-2024 Erythrocyte distribution width (RBC) [Ratio] 39.0 fl 35.1-43.9 [facility] Glomerular filtration rate ( GFR) estimation/1.73 sq m using serum, plasma, or whole bOrdered By: Scar Eckert on 12-09-2024 GFR/1.73 sq M.predicted among non-blacks MDRD (S/P/Bld) [Vol rate/Area] 85 mL/min/{1.73_m2} >60 [facility] Comment on above: mL/min/1.73m2 CKD-EP I Creatinine Equation (2020) Hematocrit Auto (Bld) [Volum e fraction]Ordered By: Scar Eckert on 12-09-2024 Hematocrit (Bld) [Volume fraction] 38.9 % 37-47 [facility] Hemoglobin measurementOrdere d By: Scar Eckert on 12-09-2024 Hemoglobin (Bld) [Mass/Vol] 12.5 g/dL 12.0-15.0 [facility] Immature granulocytes/100 WB C Auto (Bld)Ordered By: Scar Eckert on 12-09-2024 Immature granulocytes/100 WBC (Bld) 0.200 % 0.0-0.9 [facility] Comment on above: IG% - Immature Granu locytes (promyelocytes, myelocytes and metamyelocytes) > 1% indicates that a LEFT SHIFT is Present. LDL calc ser/plasOrdered By: Scar Eckert on 12-09-2024 Cholesterol in LDL [Mass/Vol] 26 mg/dL [facility] Comment on above: Oaifbyfrom=533-957 m g/dL & Higher Gysx=600 mg/dL or greaterFriedwald Equation for LDL-C Laboratory - Chemistry and C hemistry - challengeOrdered By: Scar Eckert on 12-09-2024 AST [Catalytic activity/Vol] 20 U/L <32 [facility] Lipid Profileon 12-09-2024 CHOL:HDL 1.98 Normal [facility] Comment on above: Performed By: #### L 503.0106, L501.9520, L100.0100, L500.4100, L502.0500, L506.1001, L500.4050 #### [facility] [address] [place], [place], [phone] (215) Cholesterol [Mass/Vol] 96 mg/dL Normal <=200 [facility] Comment on above: Result Comment: Chol esterol level, Desirable <200 mg/dL Borderline high cholesterol 200-239 mg/dL High cholesterol >=240 mg/dL Recommendations of the NCEP Adult Treatment Panel for the following risk-cutoff thresholds for the [place] population. Performed By: #### L 503.0106, L501.9520, L100.0100, L500.4100, L502.0500, L506.1001, L500.4050 #### [facility] [address] [place], [place], [phone] (398) Cholesterol in HDL [Mass/Vol] 49 mg/dL Normal [facility] Comment on above: Result Comment: Ana Laura onal Cholesterol Education Program (NCEP) guidelines: <40 mg/dL: Low HDL-cholesterol (major risk factor for CHD) >= 60 mg/dL: High HDL-cholesterol (negative risk factor for CHD) HDL-cholesterol is affected by a number of factors, e.g. smoking, exercise, hormones, sex and age. Performed By: #### L 503.0106, L501.9520, L100.0100, L500.4100, L502.0500, L506.1001, L500.4050 #### [facility] [address] [place], [address] Cholesterol in LDL [Mass/Vol] 26 mg/dL Normal [facility] Comment on above: Result Comment: Bord wsnrsv=005-020 mg/dL Higher Vvuh=487 mg/dL or greater Friedwald Equation for LDL-C Performed By: #### L 503.0106, L501.9520, L100.0100, L500.4100, L502.0500, L506.1001, L500.4050 #### [facility] [address] [place], [address] Cholesterol in VLDL [Mass/Vol] 22 mg/dL Normal 5-40 [facility] Comment on above: Performed By: #### L 503.0106, L501.9520, L100.0100, L500.4100, L502.0500, L506.1001, L500.4050 #### [facility] [address] [place], [address] Triglyceride [Mass/Vol] 109 mg/dL Normal [facility] Comment on above: Result Comment: The drugs N-Acetylcysteine and Metamizole may falsely depress this assay. Normal range: <150 mg/dL Borderline High: 150-199 mg/dL High: 200-499 mg/dL Very High: >500 mg/dL Performed By: #### L 503.0106, L501.9520, L100.0100, L500.4100, L502.0500, L506.1001, L500.4050 #### [facility] [address] [place], [address] MCV (mean corpuscular volume ) determinationOrdered By: Scar Eckert on 12-09-2024 MCV (RBC) [Entitic vol] 76.7 fL Low 81-99 [facility] Mean corpuscular hemoglobin (MCH) determinationOrdered By: Scar Eckert on 12-09-2024 MCH (RBC) [Entitic mass] 24.7 pg Low 27.0-32.0 [facility] Mean corpuscular hemoglobin concentration (MCHC) determinationOrdered By: Scar Eckert on 12-09-2024 MCHC (RBC) [Mass/Vol] 32.1 g/dL 32-36 [facility] Mean platelet volume determi nationOrdered By: Scar Eckert on 12-09-2024 Platelet mean volume (Bld) [Entitic vol] 9.5 fL 6.2-12.0 [facility] Microalbumin,Random Urineon 12-09-2024 MICROALBUMIN,UR 19.9 mg/L Normal <20 mg/L [facility] Comment on above: Performed By: #### L 503.0106, L501.9520, L100.0100, L500.4100, L502.0500, L506.1001, L500.4050 #### [facility] [address] [facility] [place], [address] Monocyte percentageOrdered B y: Scar Eckert on 12-09-2024 Monocytes/100 WBC (Bld) 7.0 % 0-10 [facility] Neutrophil percentageOrdered By: Scar Eckert on 12-09-2024 Neutrophils/100 WBC (Bld) 53.7 % 47-70 [facility] Nucleated red blood cell per centageOrdered By: Scar Eckert on 12-09-2024 Nucleated RBC/100 WBC (Bld) [Ratio] 0 % 0-5 [facility] Platelet countOrdered By: Ángel Eckert on 12-09-2024 Platelets (Bld) [#/Vol] 524 10*3/uL High 150-450 [facility] Potassium measurement (mass/ volume)Ordered By: Scar Eckert on 12-09-2024 Potassium (Unsp spec) [Mass/Vol] 3.2 mmol/L Low 3.3-5.1 [facility] RBC Auto (Bld) [#/Vol]Ordere d By: Scar Eckert on 12-09-2024 RBC (Bld) [#/Vol] 5.07 10*6/uL 4.2-5.4 [facility] Screening total cholesterol/ high density lipoprotein (HDL) cholesterol ratioOrdered By: Scar Eckert on 12-09-2024 Cholesterol.total/Choles terol in HDL [Mass ratio] 1.98 {ratio} [facility] Serum creatinine measurement (mass/volume)Ordered By: Scar Eckert on 12-09-2024 Creatinine [Mass/Vol] 0.81 mg/dL 0.70-1.20 [facility] Serum globulin measurementOr dered By: Scar Eckert on 12-09-2024 Globulin (S) [Mass/Vol] 3.1 g/dL 2.2-4.2 [facility] Serum glucose measurement (m ass/volume)Ordered By: Scar Eckert on 12-09-2024 Glucose [Mass/Vol] 123 mg/dL High 70-99 [facility] Serum or plasma alanine mayberry otransferase (ALT) measurementOrdered By: Scar Eckert on 12-09-2024 ALT [Catalytic activity/Vol] 17 U/L <35 [facility] Serum or plasma albumin polina urement (mass/volume)Ordered By: Scar Eckert on 12-09-2024 Albumin [Mass/Vol] 4.6 g/dL 3.5-5.0 [facility] Serum or plasma albumin/glob ulin mass ratioOrdered By: Scar Eckert on 12-09-2024 Albumin/Globulin [Mass ratio] 1.5 {ratio} 0.9-2.4 [facility] Serum or plasma alkaline franklin sphatase measurementOrdered By: Scar Eckert on 12-09-2024 ALP [Catalytic activity/Vol] 59 U/L 35-104 [facility] Serum or plasma calcium polina urement (mass/volume)Ordered By: Scar Eckert on 12-09-2024 Calcium [Mass/Vol] 10.0 mg/dL 7.6-11.0 [facility] Serum or plasma cholesterol in HDL measurement (mass/volume)Ordered By: Scar Eckert on 12-09-2024 Cholesterol in HDL [Mass/Vol] 49 mg/dL >40 [facility] Comment on above: National Cholesterol Education Program (NCEP) guidelines:<40 mg/dL: Low HDL-cholesterol (major risk factor for CHD)>= 60 mg/dL: High HDL-cholesterol (negative risk factor for CHD)HDL-cholesterol is affected by a number of factors, e.g. smoking, exercise, hormones, sex and age. Serum or plasma cholesterol measurement (mass/volume)Ordered By: Scar Eckert on 12-09-2024 Cholesterol [Mass/Vol] 96 mg/dL <201 [facility] Comment on above: Cholesterol level, D esirable <200 mg/dLBorderline high cholesterol 200-239 mg/dLHigh cholesterol >=240 mg/dLRecommendations of the NCEP Adult Treatment Panel for the following risk-cutoff thresholds for the [place] population. Serum or plasma urea nitroge n measurement (mass/volume)Ordered By: Scar Eckert on 12-09-2024 Urea nitrogen [Mass/Vol] 21 mg/dL High 4-19 [facility] Sodium levelOrdered By: Scar Eckert on 12-09-2024 Sodium [Moles/Vol] 138 mmol/L 133-145 [facility] TSH DL <= 0.005 mIU/L QnOrde red By: Scar Eckert on 12-09-2024 TSH Qn 1.420 uIU/mL 0.300-4.200 [facility] Thyroid Stim Hormone (TSH)on 12-09-2024 TSH 1.420 uIU/mL Normal 0.300-4.200 [facility] Comment on above: Performed By: #### L 503.0106, L501.9520, L100.0100, L500.4100, L502.0500, L506.1001, L500.4050 #### [facility] [address] [place], [address] Total proteinOrdered By: Xenia Eckert on 12-09-2024 Protein [Mass/Vol] 7.7 g/dL 5.9-8.4 [facility] Triglycerides measurementOrd ered By: Scar Eckert on 12-09-2024 Triglyceride [Mass/Vol] 109 mg/dL <199 [facility] Comment on above: The drugs N-Acetylcy steine and Metamizole may falsely depress this assay. Normal range: <150 mg/dLBorderline High: 150-199 mg/dLHigh: 200-499 mg/dLVery High: >500 mg/dL Urine albumin measurement [facility] detection limit of 20 mg/L or less (mass/volume)Ordered By: Scar Eckert on 12-09-2024 Albumin DL <= 20 mg/L (U) [Mass/Vol] 19.9 mg/L <20 mg/L [facility] Vitamin B12on 12-09-2024 Cobalamin (Vitamin B12) [Mass/Vol] 2534 pg/mL High 180-914 [facility] Comment on above: Performed By: #### L 503.0106, L501.9520, L100.0100, L500.4100, L502.0500, L506.1001, L500.4050 #### [facility] [address] [place], [place], [id number] Vitamin B12 ser/plasOrdered By: Scar Eckert on 12-09-2024 Cobalamin (Vitamin B12) [Mass/Vol] 2534 pg/mL High 180-914 [facility] Vitamin D,25 Hydroxyon 12-09 Vitamin D 25-OH 69.4 ng/mL Normal 30-100 [facility] Comment on above: Result Comment: [place] min D Status Deficiency: <20 ng/mL (50nmol/L) Insufficiency: 20-30 ng/mL (50-75 nmol/L) Sufficiency: 30-100 ng/mL (75-250 nmol/L) Toxicity: >100 ng/mL (>250 nmol/L) Performed By: #### L 503.0106, L501.9520, L100.0100, L500.4100, L502.0500, L506.1001, L500.4050 #### [facility] [address] [place], [address] White blood cell (WBC) count Ordered By: Scar Eckert on 12-09-2024 WBC (Bld) [#/Vol] 6.5 10*3/uL 4.4-11.0 [facility] PAP IG HPV APTIMA 16/18,45on 11-21-2024 ORDER Normal [facility] Comment on above: Order Comment: Clini nelly Info: POSTMENOPAUSAL Collection Vial: Thin Prep Vial DATABASE SPECIALIST Source: CERVICAL Date LMP/Menopause: MENOPAUSE Collection Techniques: [...] image guided system. Performed by Kishore Bowser, Electrification Adviser (ASCP) This nucleic acid amplification test detects [...] HPV Genotype not performed. [facility] ORIGINAL REPORT ON FILE IN LAB CONTAINS ADDITIONAL TEST SITE INFORMATION. Performed By: #### L 7400.0280 #### [facility] [address] [place], [place], [id number] Breast imaging reportOrdered By: Romeo Pettit on 11-10-2024 Study report [facility] Imaging Services [address] [facility] [facility] [place], [place] [id number] SCRN MAMM (CAD)W/LORI BILAT MR#: [id number] Acct: [id number] Name: MONSERRAT LEMUS Rep #: [id number] : 1965 F 59 From: Drake Pettit MD PCP: DYLAN Aguirre Status: REG CLI Study:SCRN MAMM (CAD)W/LORI BILAT Date of Exa m: 11/10/24 Exam# [id number] Ordering Dr: Niki Soto MD EXAM: SCRN [...] be mailed to the patient. Reading Location: [facility] CC: DYLAN Eckert; Dr. Niki Puente MD ~ Computer Forensics Analyst: Signed [facility] SCRN MAMM (CAD)W/LORI BILATo n 11-10-2024 SCRN MAMM (CAD)W/LORI BILAT [facility] Imaging Services [address] [facility] [place], [place] [id number] SCRN MAMM (CAD)W/LORI BILAT MR#: [id number] Acct: [id number] Name: MONSERRAT LEMUS Rep #: [id number] : 1965 F 59 From: Romeo jurado MD PCP: DYLAN Aguirre Status: REG CLI Study: SCRN MAMM (CAD)W/LORI BILAT Date of Exam: 12/28 Exam# [id number] Ordering Dr: Niki Puente EXAM: SCRN MAMM [...] be mailed to the patient. Reading Location: [place] [address] CC: DYLAN Eckert; Dr. Niki Puente MD Computer Forensics Analyst: Signed Normal [facility] Cervical or vaginal specimen microscopic examination by liquid based cytology (reportOrdered By: Niki Puente on 10-30-2024 Cytology report Cyto stain.thin prep Doc (Cvx/Vag) Not Reportable [facility] No Panel InformationOrdered By: Niki Puente on 10-30-2024 Pap Smear Test Ordered See comment [facility] Comment on above: IGP, Aptima HPV, rfx 16/18,45; One SpecimenIdentifierINTERPRETATION;NEGATIVE FOR INTRAEPITHELIAL LESION AND MALIGNANCYSpecimen Adequacy:Satisfactory for evaluation. Endocervical and/or squamousmetaplastic cells (endocervical component) are present.COMMENTS:The pap smear is a screening test designated to aid in thedetection of pre-malignant and malignant conditions of theuterine cervix. It is not a diagnostic procedure and shouldnot be used as the sole means of detecting cervical cancer. Both false-positive and false-negative reports do occur.This liquid based ThinPrep(R) pap test was screened with the use of an image guided system.Performed by Kishore Bowser, Electrification Adviser (ASCP)This nucleic acid amplification test detects fourteen high-risk HPV types (16,18,31,33,35,39,45,51,52,56,58,59,66,68) without differentiation.One Specimen Identifier The specimen received included only one patient identifier on the primary collection container. Our laboratory accrediting agency states All primary specimen containers must be labeled with 2 identifiers at the time of collection. HPV RESULTS HPV Aptima: Negative HPV Genotype Reflex Criteria not met, HPV Genotype not performed. [facility] ORIGINAL REPORT ON FILE IN LAB CONTAINS ADDITIONAL TEST SITE INFORMATION. Vessel Scrapper Helper Office Visit Reporton 10-30-2024 Vessel Scrapper Helper Office Visit Report [facility] [address], [address] [place] [address] OFFICE VISIT Date of Service: 10/30/24 MR#: [id number] Acct: [id number] Name: MONSERRAT LEMUS RENU Rep #: [id number] : 1965 Provider: Dr. Niki murray MD Age/Sex: 59/F Location: [facility] Status: Signed Intake Vital Signs 07/04/23 08:36 10/30/24 14:48 Height 5 ft 7 in 5 ft 7 in Weight: 147 lb 2 oz BMI 23.0 BP 125/75 H Intake Visit Reasons: Annual (DATABASE SPECIALIST) Inker Required: No Is patient in pain?: No [...] menopausal: Yes Patient : No : No [facility] Medical History Acute frontal sinusitis, unspecified Acute [...] history: - [employer] Patient works at [employer] work History 2 Elective abortions Hx Para 2 Spontaneous abortions Hx # Term Pregnancies Ectopic pregnancies Hx # Pregnancies Multiple births # of living children Past Pregnancies Del. Date Name GA/Weeks Outcome Route Bth Weight [facility] Unknown Brendan Diaz HPI Encounter [...] acute distress, well developed and well groomed HENMT Head: normal to inspection and normocephalic Ears: [...] and non-distende (more content not included)... Normal [facility] Absolute lymphocyte countOrd ered By: Scar Eckert on 10-25-2022 Lymphocytes Auto (Unsp spec) [#/Vol] 1.62 10*3/uL 0.83-4.51 [facility] Basophil percentageOrdered B y: Scar Eckert on 10-25-2022 Basophils/100 WBC (Bld) 0.8 % 0-1 [facility] Bilirubin [Mass/Vol] 0.70 mg/dL 0.20-1.00 [facility] Comment on above: For patients on eltr ombopag therapy, use of Dimension Paicines TBIL is not recommended. Chloride [Moles/Vol] 102 mmol/L 98-107 [facility] Cholesterol [Mass/Vol] 96 mg/dL <200 [facility] Comment on above: <200 mg/dL Desirable 200-240 mg/dL Borderline >240 mg/dL High Risk Eosinophils/100 WBC (Bld) 2.4 % 0-5 [facility] Glucose [Mass/Vol] 121 mg/dL 74-106 [facility] Comment on above: Fasting Glucose resu lt from 100 to 125 mg/dL suggests IMPAIRED HOMEOSTASIS per A.D.A. criteria. Neutrophils (Bld) [#/Vol] 2.9 10*3/uL 2.0-7.7 [facility] Neutrophils/100 WBC (Bld) 56.0 % 47-70 [facility] Potassium [Moles/Vol] 3.8 mmol/L 3.5-5.1 [facility] Protein [Mass/Vol] 7.6 g/dL 6.4-8.2 [facility] Sodium [Moles/Vol] 138 mmol/L 136-145 [facility] Triglyceride [Mass/Vol] 92 mg/dL <199 [facility] Comment on above: The drugs N-Acetylcy steine and Metamizole may falsely depress this assay.Serum Triglycerides Reference Interval Normal <150 mg/dL Borderline high 150 - 199 mg/dL High 200 - 499 mg/dL Very High > or = 500 mg/dL WBC (Bld) [#/Vol] 5.1 10*3/uL 4.4-11.0 [facility] Blood erythrocytes count (nu mber/volume)Ordered By: Scar Eckert on 10-25-2022 RBC (Bld) [#/Vol] 5.30 10*6/uL 4.2-5.4 [facility] Blood hemoglobin measurement (mass/volume)Ordered By: Scar Eckert on 10-25-2022 Hemoglobin (Bld) [Mass/Vol] 12.2 g/dL 12.0-15.0 [facility] Blood lymphocytes/100 leukoc ytesOrdered By: Scar Eckert on 10-25-2022 Lymphocytes/100 WBC (Bld) 31.8 % 19-41 [facility] Blood monocytes/100 leukocyt esOrdered By: Scar Eckert on 10-25-2022 Monocytes/100 WBC (Bld) 8.8 % 0-10 [facility] Blood platelet mean volumeOr dered By: Scar Eckert on 10-25-2022 Platelet mean volume (Bld) [Entitic vol] 9.9 fL 6.2-12.0 [facility] Determination of erythrocyte mean corpuscular volume (MCV)Ordered By: Scar Eckert on 10-25-2022 MCV (RBC) [Entitic vol] 77.2 fL 81-99 [facility] Hematocrit Auto (Bld) [Volum e fraction]Ordered By: Scar Eckert on 10-25-2022 Hematocrit (Bld) [Volume fraction] 40.9 % 37-47 [facility] - Chemistry and C hemistry - challengeOrdered By: Scar Eckert on 10-25-2022 ALP [Catalytic activity/Vol] 65 U/L 45-117 [facility] ALT [Catalytic activity/Vol] 22 U/L 13-56 [facility] CO2 [Moles/Vol] 30.0 mmol/L 21.0-32.0 [facility] Globulin (S) [Mass/Vol] 3.6 g/dL 2.2-4.2 [facility] Urea nitrogen/Creatinine [Mass ratio] 32.5 mg/mg 10-20 [facility] - Hematology and Cell countsOrdered By: Scar Eckert on 10-25-2022 Erythrocyte distribution width (RBC) [Entitic vol] 41.2 fL 35.1-43.9 [facility] Erythrocyte distribution width (RBC) [Ratio] 14.9 % 11.6-14.6 [facility] Immature granulocytes/100 WBC (Bld) 0.200 % 0.0-0.9 [facility] Comment on above: IG% - Immature Granu locytes (promyelocytes, myelocytes and metamyelocytes) > 1% indicates that a LEFT SHIFT is Present. MCH (RBC) [Entitic mass] 23.0 pg 27.0-32.0 [facility] Nucleated RBC/100 WBC (Bld) [Ratio] 0 % 0-5 [facility] MCHC Auto (RBC) [Mass/Vol]Or dered By: Scar Eckert on 10-25-2022 MCHC (RBC) [Mass/Vol] 29.8 g/dL 32-36 [facility] No Panel InformationOrdered By: Scar Eckert on 10-25-2022 Estimated GFR (MDRD) Amer 96 mL/min >60 [facility] Comment on above: GFR Calc Estimated GFR (MDRD) Non-Af Amer 79 mL/min >60 [facility] Comment on above: Non- GFR Calc Thyroid Stimulating Hormone (TSH) 1.09 uIU/mL 0.358-3.74 [facility] Urine Microalbumin/Creatinine Ratio 8.3 mg/g CRE <30 [facility] Platelets bldOrdered By: Xenia Eckert on 10-25-2022 Platelets (Bld) [#/Vol] 482 10*3/uL 150-450 [facility] Serum or plasma albumin polina urement (mass/volume)Ordered By: Scar Eckert on 10-25-2022 Albumin [Mass/Vol] 4.0 g/dL 3.2-5.0 [facility] Serum or plasma albumin/glob ulin mass ratioOrdered By: Scar Eckert on 10-25-2022 Albumin/Globulin [Mass ratio] 1.1 {ratio} 0.9-2.4 [facility] Serum or plasma calcium polina urement (mass/volume)Ordered By: Scar Eckert on 10-25-2022 Calcium [Mass/Vol] 9.5 mg/dL 8.5-10.1 [facility] Serum or plasma cholesterol in HDL measurement (mass/volume)Ordered By: Scar Eckert on 10-25-2022 Cholesterol in HDL [Mass/Vol] 45 mg/dL >40 [facility] Comment on above: The drugs N-Acetylcy steine and Metamizole may falsely depress this assay. Reference Range HDL <40 mg/dL Low HDL Cholesterol HDL >or= 60 mg/dL High HDL Cholesterol Serum or plasma cholesterol in VLDL measurement (mass/volume)Ordered By: Scar Eckert on 10-25-2022 Cholesterol in VLDL [Mass/Vol] 18 mg/dL 5-40 [facility] Serum or plasma creatinine m easurement (mass/volume)Ordered By: Scar Eckert on 10-25-2022 Creatinine [Mass/Vol] 0.80 mg/dL 0.55-1.02 [facility] Comment on above: The validity of the calculated GFR & GFRAA in patients over 70 years has not been determined. Clinical correlation is essential. Serum or plasma low density lipoprotein (LDL) cholesterol measurement (mass/volume)Ordered By: Scar Eckert on 10-25-2022 Cholesterol in LDL [Mass/Vol] 33 mg/dL 0-130 [facility] Serum or plasma urea nitroge n measurement (mass/volume)Ordered By: Scar Eckert on 10-25-2022 Urea nitrogen [Mass/Vol] 26 mg/dL 7-18 [facility] Thin prep Papanicolaou smear with manual screeningOrdered By: Scar Eckert on 10-25-2022 Thin prep Papanicolaou smear with manual screening 15 U/L 15-37 [facility] Thin prep Papanicolaou smear with manual screening 6 5-15 [facility] Thin prep Papanicolaou smear with manual screening 15.1 mg/L NO RANGE EST. [facility] Urine creatinine measurement (mass/volume)Ordered By: Scar Eckert on 10-25-2022 Creatinine (U) [Mass/Vol] 181.00 mg/dL NO RANGE EST. [facility] Whole blood hemoglobin A1c/t otal hemoglobin ratio (mass fraction)Ordered By: Scar Eckert on 10-25-2022 HbA1c (Bld) [Mass fraction] 7.3 % 3.8-5.6 [facility] Comment on above: Normal < 5.7 % Predi abetic 5.7 - 6.4 % Diabetic >or= 6.5 % Please note range changes. Laboratory - Hematology and Cell countson 08-03-2022 HbA1c (Bld) [Mass fraction] 6.9 % 4.2-6.3 [facility] - Hematology and Cell countson 05-01-2022 HbA1c (Bld) [Mass fraction] 6.2 % 4.2-6.3 [facility] Basophil percentageon 2021 Basophil percentage 0-5 SEEN /hpf 0-5 [facility] Work Phone: Bilirubin Test strip Ql (U)o n 01-23-2022 Bilirubin Ql (U) Negative Negative [facility] Work Phone: Ketones Test strip Ql (U)on 01-23-2022 Ketones Ql (U) Negative Negative [facility] Work Phone: Laboratory - Hematology and Cell countson 01-23-2022 HbA1c (Bld) [Mass fraction] 5.9 % 4.2-6.3 [facility] Work Phone: Mucus LM Ql (Urine sed)on Mucus Ql (Urine sed) 0 SEEN /hpf [facility] Work Phone: Nitrite Test strip Ql (U)on 01-23-2022 Nitrite Ql (U) Negative Negative [facility] Work Phone: Protein Test strip Ql (U)on 01-23-2022 Protein Ql (U) Negative Negative [facility] Work Phone: Squamous epithelial cells de tection in urine sediment by light microscopyon 01-23-2022 Epithelial cells.squamous LM Ql (Urine sed) 0-5 SEEN /hpf 5-10 [facility] Work Phone: Urine blood detectionon 01-05 RBC Ql (U) Negative Negative [facility] Work Phone: RBC Ql (U) 0 SEEN /hpf 0-5 [facility] Work Phone: Urine clarityon 01-23-2022 Clarity (U) Sl. Cloudy Clear [facility] Work Phone: Urine color determinationon 01-23-2022 Color (U) Yellow Yellow [facility] Work Phone: Urine glucose detectionon Glucose Ql (U) 1000 mg/dl Normal [facility] Work Phone: Urine leukocyte esterase det ection by dipstickon 01-23-2022 Leukocyte esterase Test strip Ql (U) 25 /ul Negative [facility] Work Phone: [phone] Urine pHon 01-23-2022 pH (U) 5.0 [pH] 5.0 - 8.0 [facility] Work Phone: [phone] Urine sediment bacteria coun t by microscopy (number/high power field)on 01-23-2022 Bacteria LM.HPF (Urine sed) [#/Area] 0 /[HPF] None Seen [facility] Work Phone: Urine specific gravity measu rementon 01-23-2022 Specific gravity (U) [Rel density] 1.015 1.002-1.030 [facility] Work Phone: [phone] Urobilinogen Auto test strip Ql (U)on 01-23-2022 Urobilinogen Ql (U) Normal mg/dl Normal [facility] Work Phone: [phone] Basophil percentageon 2021 WBC (Bld) [#/Vol] 7.9 10*3/uL 4.4-11.0 [facility] Work Phone: Blood erythrocytes count (nu mber/volume)on 10-24-2021 RBC (Bld) [#/Vol] 4.81 10*6/uL 4.2-5.4 [facility] Work Phone: [phone] Blood hemoglobin measurement (mass/volume)on 10-24-2021 Hemoglobin (Bld) [Mass/Vol] 11.7 g/dL 12.0-15.0 [facility] Work Phone: [phone] Blood platelet mean volumeon 10-24-2021 Platelet mean volume (Bld) [Entitic vol] 10.1 fL 6.2-12.0 [facility] Work Phone: [phone] Determination of erythrocyte mean corpuscular volume (MCV)on 10-24-2021 MCV (RBC) [Entitic vol] 78.2 fL 81-99 [facility] Work Phone: [phone] Hematocrit Auto (Bld) [Volum e fraction]on 10-24-2021 Hematocrit (Bld) [Volume fraction] 37.6 % 37-47 [facility] Work Phone: Laboratory - Hematology and Cell countson 10-24-2021 Erythrocyte distribution width (RBC) [Entitic vol] 40.7 fL 35.1-43.9 [facility] Work Phone: Erythrocyte distribution width (RBC) [Ratio] 14.4 % 11.6-14.6 [facility] Work Phone: MCH (RBC) [Entitic mass] 24.3 pg 27.0-32.0 [facility] Work Phone: MCHC Auto (RBC) [Mass/Vol]on 10-24-2021 MCHC (RBC) [Mass/Vol] 31.1 g/dL 32-36 [facility] Work Phone: Platelets bldon 10-24-2021 Platelets (Bld) [#/Vol] 501 10*3/uL 150-450 [facility] Work Phone: Laboratory - Hematology and Cell countson 10-17-2021 HbA1c (Bld) [Mass fraction] 6.1 % 4.2-6.3 [facility] Work Phone: MA Mamm Screen w/CAD if perf and 3D Bilon 10-02-2018 Bilirubin.direct mass conc Exam Date/Time: 10/01/2018 15:05 EDT Reason for Exam: SCREENING 3D/LORI;Screening Report STUDY: Digital mammography screening with lori; 10/01/2018 3:05 pm ACCESSION NUMBER(S): [id number] ORDERING CLINICIAN: Teto Oquendo INDICATION: Screening. COMPARISON: [...] Category 1-Negative Recommendation: Normal interval follow-up Normal [facility] Albumin/Creat Ratioon 2018 Albumin Urine Random <12.0 Normal 0.0-23.0 [facility] Comment on above: Performed By: #### U ACR, LIPB, HBA1C, BMP #### [facility] [address] [place] [phone] Albumin/Creat Ratio Not calculated Normal 0-30 [facility] Comment on above: Performed By: #### U ACR, LIPB, HBA1C, BMP #### [facility] [address] [place] [phone] Creatinine,Urine,Ran 142.2 mg/dL Normal 20-300 [facility] Comment on above: Performed By: #### U ACR, LIPB, HBA1C, BMP #### [facility] [address] [place] [phone] Basic Metabolic Panlon 09-17 Anion gap molar conc 16 mmol/L Normal 9-18 [facility] Comment on above: Performed By: #### U ACR, LIPB, HBA1C, BMP #### [place] [id number] [place] [phone] Calcium mass conc 9.4 mg/dL Normal 8.5-10.2 [facility] Comment on above: Performed By: #### U ACR, LIPB, HBA1C, BMP #### [facility] [address] [place] [phone] Chloride molar conc 103 mmol/L Normal 97-[address] [facility] Comment on above: Performed By: #### U ACR, LIPB, HBA1C, BMP #### [facility] [address] [place] [phone] CO2 molar conc 23 mmol/L Normal 22-30 [facility] Comment on above: Performed By: #### U ACR, LIPB, HBA1C, BMP #### [place] [id number] [place] [phone] Creatinine mass conc 0.92 mg/dL Normal 0.58-0.96 [facility] Comment on above: Performed By: #### U ACR, LIPB, HBA1C, BMP #### [place] [phone] eGFR- Amer. >60 Normal [facility] Comment on above: Performed By: #### U ACR, LIPB, HBA1C, BMP #### [place] [address] GFR/1.73 sq M predicted among non-blacks MDRD vol rate/area (S/P/Bld) mL/min/{1.73_m2} Normal [facility] Comment on above: Result Comment: eGFR (Estimated [...] #### U ACR, LIPB, HBA1C, BMP #### [place] [address] Glucose mass conc 82 mg/dL Normal 74-99 [facility] Comment on above: Result Comment: The [place] Diabetes Association (ADA) provides guidance for cutoff [...] Standards of Medical Care in Diabetes 2016, [place] [employer]. Diabetes Care. 2016.39(Suppl 1). Performed By: #### U ACR, LIPB, HBA1C, BMP #### [facility] [address] [place], [place] [address] Potassium molar conc 4.1 mmol/L Normal 3.7-5.1 [facility] Comment on above: Performed By: #### U ACR, LIPB, HBA1C, BMP #### [facility] [address], [place] [address] Sodium molar conc 142 mmol/L Normal 136-144 [facility] Comment on above: Performed By: #### U ACR, LIPB, HBA1C, BMP #### [facility] [address] [place], [place] [address] Urea nitrogen mass conc 14 mg/dL Normal 7-21 [facility] Comment on above: Performed By: #### U ACR, LIPB, HBA1C, BMP #### [facility] [address] [place], [place] [address] Hemoglobin A1con 09-17-2018 Hemoglobin A1c/Hemoglobin.total mass fraction (Bld) 6.7 % High 4.3-5.6 [facility] Comment on above: Result Comment: Amer [place] Diabetes Association guidelines indicate that patients with HgbA1c in the range 5.7-6.4% are at increased risk for development of diabetes, and intervention by lifestyle modification may be beneficial. HgbA1c greater or equal to 6.5% is considered diagnostic of diabetes. Performed By: #### U ACR, LIPB, HBA1C, BMP #### [facility] [address] [place] [phone] Hemoglobin A1c/Hemoglobin.total mass fraction (Bld) 146 mg/dL Normal [facility] Comment on above: Result Comment: eAG: (Estimated average glucose) is a calculated value from HgbA1c and is civil rights representative of the average blood glucose level in the last 2-3 month period. Performed By: #### U ACR, LIPB, HBA1C, BMP #### [facility] [address] [place] [address] Lipid Panel, Basic 019 Cholesterol in HDL mass conc 38 mg/dL Low >39 [facility] Comment on above: Result Comment: 40-5 9 mg/dL, Acceptable >59 mg/dL, High: Negative risk factor for coronary heart disease <40 mg/dL, Low: Positive risk factor for coronary heart disease Performed By: #### U ACR, LIPB, HBA1C, BMP #### [facility] [address] [place] [address] Cholesterol in LDL mass conc 33 mg/dL Normal <100 [facility] Comment on above: Result Comment: <100 mg/dL, Optimal 100-129 mg/dL, Near optimal/above optimal 130-159 mg/dL, Borderline high 160-189 mg/dL, High >189 mg/dL, Very high Secondary prevention optimal LDL Cholesterol levels are recommended to be < 70 mg/dL Performed By: #### U ACR, LIPB, HBA1C, BMP #### [facility] [address] [place], [place] [address] Cholesterol mass conc 90 mg/dL Normal <200 [facility] Comment on above: Result Comment: <200 mg/dL, Desirable 200-239 mg/dL, Borderline high >239 mg/dL, High Performed By: #### U ACR, LIPB, HBA1C, BMP #### [facility] [address] [place] [phone] Fasting Time 12 hrs Normal [facility] Comment on above: Performed By: #### U ACR, LIPB, HBA1C, BMP #### [facility] [address] [place], [place] [address] LDL:HDL Ratio 0.87 Normal <2.54 [facility] Comment on above: Result Comment: Refe rence: 1. National Cholesterol Education Program ATP III Guideline At-A-Glance Quick Desk Reference: National Heart, Lung, and Blood [place]. National Institutes of Health. 2001: NIH Publication No. 01-3305. 2. An International Atherosclerosis Society position paper: global recommendations for the management of dyslipidemia: executive summary, Atherosclerosis. 2014: 232(2):410-413. Performed By: #### U ACR, LIPB, HBA1C, BMP #### [place] [phone] Non HDL Cholesterol 52 mg/dL Normal <[address] [facility] Comment on above: Result Comment: <130 mg/dL, Optimal 130-159 mg/dL, Near optimal/above optimal 160-189 mg/dL, Borderline high 190-219 mg/dL, High >219 mg/dL, Very high Secondary prevention optimal non HDL Cholesterol levels are recommended to be < 100 mg/dL Performed By: #### U ACR, LIPB, HBA1C, BMP #### [facility] [place], [place] [address] TC:HDL Ratio 2.37 Normal <5.10 [facility] Comment on above: Performed By: #### U ACR, LIPB, HBA1C, BMP #### [facility] [address] [place] [address] Triglyceride mass conc 93 mg/dL Normal <150 [facility] Comment on above: Result Comment: <150 mg/dL, Normal 150-199 mg/dL, Borderline high 200-499 mg/dL, High >499 mg/dL, Very high Performed By: #### U ACR, LIPB, HBA1C, BMP #### [facility] [place] [address] VLDL Cholesterol 19 mg/dL Normal <30 [facility] Comment on above: Performed By: #### U ACR, LIPB, HBA1C, BMP #### [place] [id number] [place] [address] Basic Metabolic Panlon 03-12 Anion gap molar conc 16 mmol/L Normal 9-18 [facility] Comment on above: Performed By: #### H ZOHAIB, BMP #### [place] [id number] [place] [address] Calcium mass conc 9.9 mg/dL Normal 8.5-10.2 [facility] Comment on above: Performed By: #### H ZOHAIB, BMP #### [place] [address] Chloride molar conc 96 mmol/L Low 97-[address] [facility] Comment on above: Performed By: #### H ZOHAIB, BMP #### [place] [id number] [place] [address] CO2 molar conc 26 mmol/L Normal 22-30 [facility] Comment on above: Performed By: #### H ZOHAIB, BMP #### [place] [id number] [place] [address] Creatinine mass conc 0.99 mg/dL High 0.58-0.96 [facility] Comment on above: Performed By: #### Shahrzad PENNY, BMP #### [place] [id number] [place] [phone] eGFR- Amer. >60 Normal [facility] Comment on above: Performed By: #### H ZOHAIB, BMP #### [place] [phone] [place] [address] GFR/1.73 sq M predicted among non-blacks MDRD vol rate/area (S/P/Bld) 59 . Normal [facility] Comment on above: Result Comment: eGFR (Estimated [...] Performed By: #### H ZOHAIB, BMP #### [facility] [address] [place] [address] Glucose mass conc 146 mg/dL High 74-99 [facility] Comment on above: Result Comment: The [place] Diabetes Association (ADA) provides guidance for cutoff [...] Standards of Medical Care in Diabetes 2016, [place] Diabetes Association. Diabetes Care. 2016.39(Suppl 1). Performed By: #### H ZOHAIB, BMP #### [facility] [address] [place] [address] Potassium molar conc 4.1 mmol/L Normal 3.7-5.1 [facility] Comment on above: Performed By: #### H ZOHAIB, BMP #### [facility] [address] [place] [phone] Sodium molar conc 138 mmol/L Normal 136-144 [facility] Comment on above: Performed By: #### H ZOHAIB, BMP #### [facility] [address] [place] [address] Urea nitrogen mass conc 19 mg/dL Normal 7-21 [facility] Comment on above: Performed By: #### H BA1C, BMP #### [facility] [address] [place] [address] Hemoglobin A1con 03-12-2018 Hemoglobin A1c/Hemoglobin.total mass fraction (Bld) 203 mg/dL Normal [facility] Comment on above: Result Comment: eAG: (Estimated average glucose) is a calculated value from HgbA1c and is civil rights representative of the average blood glucose level in the last 2-3 month period. Performed By: #### H BA1C, BMP #### [facility] [address] [place] [address] Hemoglobin A1c/Hemoglobin.total mass fraction (Bld) 8.7 % High 4.3-5.6 [facility] Comment on above: Performed By: #### H BA1C, BMP #### [facility] [address] [place] [address] Culture, urine Bacteria identified Cx Nom (U) Mixed Gram Pos & Gram Neg Org [facility] Work Phone: Vital Signs Date Time Vital Sign Value Performing Clinician Genie bell 10-30-2024 14:48-0400 Body height 170.18 cm Scar Eckert FOUNDRY SUPERVISOR-C Work Phone: [facility] 10-30-2024 14:48-0400 Body mass index (BMI) [Ratio] 23 kg/m2 Scar Eckert FOUNDRY SUPERVISOR-C Work Phone: [facility] 10-30-2024 14:48-0400 Body weight 66.73 kg Scar Eckert FOUNDRY SUPERVISOR-C Work Phone: [facility] 10-30-2024 14:48-0400 Diastolic blood pressure 75 mm[Hg] Scar Eckert FOUNDRY SUPERVISOR-C Work Phone: [facility] 10-30-2024 14:48-0400 Systolic blood pressure 125 mm[Hg] Scar Eckert FOUNDRY SUPERVISOR-C Work Phone: [facility] 07-04-2023 08:36-0500 Body height 170.18 cm FOUNDRY SUPERVISOR-C Scar Eckert FOUNDRY SUPERVISOR Work Phone: [facility] 07-04-2023 08:32-0500 Body mass index (BMI) [Ratio] 29.6 kg/m2 FOUNDRY SUPERVISOR-C Scar Eckert FOUNDRY SUPERVISOR Work Phone: [facility] 07-04-2023 08:32-0500 Body weight 73.48 kg FOUNDRY SUPERVISOR-C Scar Eckert FOUNDRY SUPERVISOR Work Phone: [facility] 07-04-2023 08:32-0500 Diastolic blood pressure 76 mm[Hg] FOUNDRY SUPERVISOR-C Scar Eckert FOUNDRY SUPERVISOR Work Phone: [facility] 07-04-2023 08:32-0500 Systolic blood pressure 120 mm[Hg] FOUNDRY SUPERVISOR-C Scar Eckert FOUNDRY SUPERVISOR Work Phone: [facility] 08-03-2022 07:09-0400 Body height 157.48 cm FOUNDRY SUPERVISOR-C Scar Eckert FOUNDRY SUPERVISOR Work Phone: [facility] 08-03-2022 07:09-0400 Body mass index (BMI) [Ratio] 29.8 kg/m2 FOUNDRY SUPERVISOR-C Scar Eckert FOUNDRY SUPERVISOR Work Phone: [facility] 08-03-2022 07:09-0400 Body temperature 97.9 [degF] FOUNDRY SUPERVISOR-C Scar Eckert FOUNDRY SUPERVISOR Work Phone: [facility] 08-03-2022 07:09-0400 Body weight 73.93 kg FOUNDRY SUPERVISOR-C Scar Eckert FOUNDRY SUPERVISOR Work Phone: [facility] 08-03-2022 07:09-0400 Diastolic blood pressure 86 mm[Hg] FOUNDRY SUPERVISOR-C Scar Eckert FOUNDRY SUPERVISOR Work Phone: [facility] 08-03-2022 07:09-0400 Heart rate 86 /min FOUNDRY SUPERVISOR-C Scar Eckert FOUNDRY SUPERVISOR Work Phone: [facility] 08-03-2022 07:09-0400 Respiratory rate 16 /min FOUNDRY SUPERVISOR-C Scar Eckert FOUNDRY SUPERVISOR Work Phone: [facility] 08-03-2022 07:09-0400 SaO2% (BldA) [Mass fraction] 99 % FOUNDRY SUPERVISOR-C Scar Eckert FOUNDRY SUPERVISOR Work Phone: [facility] 08-03-2022 07:09-0400 Systolic blood pressure 136 mm[Hg] FOUNDRY SUPERVISOR-C Scar Eckert FOUNDRY SUPERVISOR Work Phone: [facility] 06-28-2022 08:13-0500 Body height 157.48 cm FOUNDRY SUPERVISOR-C Scar Eckert FOUNDRY SUPERVISOR Work Phone: [facility] 06-28-2022 08:12-0500 Body mass index (BMI) [Ratio] 29.3 kg/m2 FOUNDRY SUPERVISOR-C Scar Eckert FOUNDRY SUPERVISOR Work Phone: [facility] 06-28-2022 08:12-0500 Body weight 72.8 kg FOUNDRY SUPERVISOR-C Scar Eckert FOUNDRY SUPERVISOR Work Phone: [facility] 06-28-2022 08:12-0500 Diastolic blood pressure 87 mm[Hg] FOUNDRY SUPERVISOR-C Scar Eckert FOUNDRY SUPERVISOR Work Phone: [facility] 06-28-2022 08:12-0500 Heart rate 87 /min FOUNDRY SUPERVISOR-C Scar Eckert FOUNDRY SUPERVISOR Work Phone: [facility] 06-28-2022 08:12-0500 Systolic blood pressure 136 mm[Hg] FOUNDRY SUPERVISOR-C Scar Eckert FOUNDRY SUPERVISOR Work Phone: [facility] 05-01-2022 08:54-0500 Body mass index (BMI) [Ratio] 28.5 kg/m2 FOUNDRY SUPERVISOR-C Scar Eckert FOUNDRY SUPERVISOR Work Phone: [facility] 05-01-2022 08:54-0500 Body temperature 98.6 [degF] FOUNDRY SUPERVISOR-C Scar Eckert FOUNDRY SUPERVISOR Work Phone: [facility] 05-01-2022 08:54-0500 Body weight 70.76 kg FOUNDRY SUPERVISOR-C Scar Eckert FOUNDRY SUPERVISOR Work Phone: [facility] 05-01-2022 08:54-0500 Diastolic blood pressure 108 mm[Hg] FOUNDRY SUPERVISOR-C Scar Eckert FOUNDRY SUPERVISOR Work Phone: [facility] 05-01-2022 08:54-0500 Heart rate 90 /min FOUNDRY SUPERVISOR-C Scar Eckert FOUNDRY SUPERVISOR Work Phone: [facility] 05-01-2022 08:54-0500 Respiratory rate 16 /min FOUNDRY SUPERVISOR-C Scar Eckert FOUNDRY SUPERVISOR Work Phone: [facility] 05-01-2022 08:54-0500 SaO2% (BldA) [Mass fraction] 99 % FOUNDRY SUPERVISOR-C Scar Eckert FOUNDRY SUPERVISOR Work Phone: [facility] 05-01-2022 08:54-0500 Systolic blood pressure 168 mm[Hg] FOUNDRY SUPERVISOR-C Scar Eckert FOUNDRY SUPERVISOR Work Phone: [facility] 01-23-2022 16:28-0400 Body height 157.48 cm FOUNDRY SUPERVISOR-C Scar Eckert FOUNDRY SUPERVISOR Work Phone: [facility] Work Phone: 01-23-2022 16:28-0400 Body mass index (BMI) [Ratio] 28.8 kg/m2 FOUNDRY SUPERVISOR-C Scar Eckert FOUNDRY SUPERVISOR Work Phone: [facility] Work Phone: 01-23-2022 16:28-0400 Body temperature 97.8 [degF] FOUNDRY SUPERVISOR-C Scar Eckert FOUNDRY SUPERVISOR Work Phone: [facility] Work Phone: 01-23-2022 16:28-0400 Body weight 71.32 kg FOUNDRY SUPERVISOR-C Scar Eckert FOUNDRY SUPERVISOR Work Phone: [facility] Work Phone: 01-23-2022 16:28-0400 Diastolic blood pressure 80 mm[Hg] FOUNDRY SUPERVISOR-C Scar Eckert FOUNDRY SUPERVISOR Work Phone: [facility] Work Phone: 01-23-2022 16:28-0400 Heart rate 78 /min FOUNDRY SUPERVISOR-C Scar Eckert FOUNDRY SUPERVISOR Work Phone: [facility] Work Phone: 01-23-2022 16:28-0400 Respiratory rate 18 /min FOUNDRY SUPERVISOR-C Scar Eckert FOUNDRY SUPERVISOR Work Phone: [facility] Work Phone: 01-23-2022 16:28-0400 SaO2% (BldA) [Mass fraction] 99 % FOUNDRY SUPERVISOR-C Scar Eckert FOUNDRY SUPERVISOR Work Phone: [facility] Work Phone: 01-23-2022 16:28-0400 Systolic blood pressure 130 mm[Hg] FOUNDRY SUPERVISOR-C Scar Eckert FOUNDRY SUPERVISOR Work Phone: [facility] Work Phone: 10-17-2021 08:07-0400 Body mass index (BMI) [Ratio] 28.1 kg/m2 FOUNDRY SUPERVISOR-C Scar Eckert FOUNDRY SUPERVISOR Work Phone: [facility] Work Phone: 10-17-2021 08:07-0400 Body temperature 97.2 [degF] FOUNDRY SUPERVISOR-C Scar Eckert FOUNDRY SUPERVISOR Work Phone: [facility] Work Phone: 10-17-2021 08:07-0400 Body weight 69.85 kg FOUNDRY SUPERVISOR-C Scar Eckert FOUNDRY SUPERVISOR Work Phone: [facility] Work Phone: 10-17-2021 08:07-0400 Diastolic blood pressure 74 mm[Hg] FOUNDRY SUPERVISOR-C Scar Eckert FOUNDRY SUPERVISOR Work Phone: [facility] Work Phone: 10-17-2021 08:07-0400 Heart rate 76 /min FOUNDRY SUPERVISOR-C Scar Eckert FOUNDRY SUPERVISOR Work Phone: [facility] Work Phone: 10-17-2021 08:07-0400 Respiratory rate 14 /min FOUNDRY SUPERVISOR-C Scar Eckert FOUNDRY SUPERVISOR Work Phone: [facility] Work Phone: 10-17-2021 08:07-0400 SaO2% (BldA) [Mass fraction] 98 % FOUNDRY SUPERVISOR-C Scar Eckert FOUNDRY SUPERVISOR Work Phone: [facility] Work Phone: 10-17-2021 08:07-0400 Systolic blood pressure 132 mm[Hg] FOUNDRY SUPERVISOR-C Scar Eckert FOUNDRY SUPERVISOR Work Phone: [facility] Work Phone: Encounters Encounter Date Encounter Type Care Provider Facility Start: 12-09-2024 End: 12-09-2024 ambulatory Scar Eckert FOUNDRY SUPERVISOR-C Work Phone: -Laboratory [facility] Start: 12-09-2024 End: 12-09-2024 Patient encounter procedure Scar Eckert FOUNDRY SUPERVISOR-C -Laboratory [facility] Start: 12-09-2024 End: 12-09-2024 ambulatory Scar Eckert VSC Facility:[facility] Start: 11-10-2024 End: 11-10-2024 ambulatory Scar Eckert FOUNDRY SUPERVISOR-C Work Phone: -Outpatient Breast Imaging Start: 11-10-2024 End: 11-10-[address] Niki Puente MD -Outpatient Breast Imaging Work Phone: Start: 11-10-2024 End: 11-10-2024 ambulatory Niki Puente Facility:[facility] Start: 10-30-2024 End: 10-30-2024 ambulatory Scar Eckert FOUNDRY SUPERVISOR-C Work Phone: -Laboratory Specimen Start: 10-30-2024 End: 10-30-[address] Ольга Barger DO -Laboratory Specimen Work Phone: Start: 10-30-2024 Encounter for gynecological examination (general) (routine) with abnormal findings Niki Puente [facility] Start: 10-30-2024 End: 10-30-[address] Niki Puente MD -[facility] Work Phone: Start: 10-30-2024 End: 10-30-[address] Niki Puente MD [facility] Start: 10-30-2024 End: 10-30-2024 ambulatory Scar Munsonder FOUNDRY SUPERVISOR-C Work Phone: [facility] Start: 10-30-2024 End: 10-30-2024 ambulatory Ольга Annajuan Jay Facility:[facility] Start: 2024 ambulatory Scar Tomeka FOUNDRY SUPERVISOR Facility: [facility] Start: 07-15-2023 End: 07-15-2023 ambulatory FOUNDRY SUPERVISOR-C Scar Eckert FOUNDRY SUPERVISOR Work Phone: [facility] Work Phone: Start: 07-15-2023 End: 07-15-2023 Patient encounter procedure FOUNDRY SUPERVISOR-C Scar Eckert FOUNDRY SUPERVISOR Work Phone: [facility]-Outpatient Breast Imaging Work Phone: Start: 07-04-2023 End: 07-04-2023 Patient encounter procedure FOUNDRY SUPERVISOR-C Scar Eckert FOUNDRY SUPERVISOR Work Phone: [facility] Work Phone: Start: 10-25-2022 End: 10-25-2022 ambulatory FOUNDRY SUPERVISOR-C Scar Eckert FOUNDRY SUPERVISOR Work Phone: [facility] Work Phone: Start: 10-25-2022 End: 10-25-2022 Patient encounter procedure FOUNDRY SUPERVISOR-C Scar Munsonder FOUNDRY SUPERVISOR Work Phone: [facility]-Laboratory, [place] Start: 08-03-2022 End: 08-03-2022 Patient encounter procedure FOUNDRY SUPERVISOR-C Scar Eckert FOUNDRY SUPERVISOR Work Phone: [facility] Start: 07-10-2022 End: 07-10-2022 ambulatory FOUNDRY SUPERVISOR-C Scar Eckert FOUNDRY SUPERVISOR Work Phone: [facility] Work Phone: Start: 07-10-2022 End: 07-10-2022 Patient encounter procedure FOUNDRY SUPERVISOR-C Scar Eckert FOUNDRY SUPERVISOR Work Phone: [facility]-Outpatient Breast Imaging Start: 07-04-2022 End: 07-04-2022 Patient encounter procedure FOUNDRY SUPERVISOR-C Scar Eckert FOUNDRY SUPERVISOR Work Phone: [facility] Start: 06-28-2022 End: 06-28-2022 Patient encounter procedure FOUNDRY SUPERVISOR-C Scar Munsonder FOUNDRY SUPERVISOR Work Phone: [facility] Start: 05-01-2022 End: 05-01-2022 Patient encounter procedure FOUNDRY SUPERVISOR-C Scar Munsonder FOUNDRY SUPERVISOR Work Phone: [facility] Start: 01-24-2022 End: 01-24-2022 ambulatory FOUNDRY SUPERVISOR-C Scar Eckert FOUNDRY SUPERVISOR Work Phone: [facility] Work Phone: Start: 01-24-2022 End: 01-24-2022 Patient encounter procedure FOUNDRY SUPERVISOR-C Scar Munsonder FOUNDRY SUPERVISOR Work Phone: [facility]-Laboratory, Specimen Start: 01-23-2022 End: 01-23-2022 Patient encounter procedure FOUNDRY SUPERVISOR-C Scar Eckert FOUNDRY SUPERVISOR Work Phone: [facility] Start: 10-24-2021 End: 10-24-2021 Patient encounter procedure FOUNDRY SUPERVISOR-C Scar Eckert FOUNDRY SUPERVISOR [facility] Start: 10-17-2021 End: 10-17-2021 Patient encounter procedure FOUNDRY SUPERVISOR-C Scar Munsonder FOUNDRY SUPERVISOR Work Phone: [facility] Start: 11-22-2017 Patient encounter Facil [id number] Procedures Date Procedure Procedure Detail Performing Clinician Start: 12-09-2024 Vitamin D, 25-hydrox y measurement Scar Eckert FOUNDRY SUPERVISOR-C Work Phone: Comment on above: Vitamin D StatusDefi ciency: <20 ng/mL (50nmol/L)Insufficiency: 20-30 ng/mL (50-75 nmol/L)Sufficiency: 30-100 ng/mL (75-250 nmol/L)Toxicity: >100 ng/mL (>250 nmol/L) Start: 11-10-2024 Screening mammography Joselo Eckert FOUNDRY SUPERVISOR-C Work Phone: Start: 10-30-2024 Liquid based cervica l cytology screening Scar Eckert FOUNDRY SUPERVISOR-C Work Phone: Start: 07-15-2023 Screening mammography N P-C Scar Munsonder FOUNDRY SUPERVISOR Work Phone: Start: 07-10-2022 Screening mammography N P-C Scar Eckert FOUNDRY SUPERVISOR Work Phone: H/O: hysterectomy History of par tial hysterectomy FOUNDRY SUPERVISOR-C Scar Munsonder FOUNDRY SUPERVISOR Work Phone: Comment on above: 2009 - has cer vix, needs pap smears. due 2024 H/O: hysterectomy History of par tial hysterectomy Dr. Niki Puente MD Urine culture FOUNDRY SUPERVISOR-C Scar curtis FOUNDRY SUPERVISOR Work Phone: Plan of Treatment Date Care Activity Detail Author Start: 11-10-2024 MG Breast - bilateral Screening [facility] Start: 10-30-2024 Liquid based cervica l cytology screening [facility] Cytology report of C ervical or vaginal smear or scraping Cyto stain.thin prep [facility] Liquid based cervica l cytology screening [facility] MG Breast - bilateral Screening [facility] Path report.final Dx Spec [facility] Immunizations Immunization Date Immunization Notes Care Provider Fa aleksandr 06-01-2021 Covid (Pfizer) FOUNDRY SUPERVISOR-C Scar Munsonsaima er FOUNDRY SUPERVISOR Work Phone: [facility] 01-11-2021 influenza, injectable,quadrivalent , preservative free, director market research-C Scar Eckert FOUNDRY SUPERVISOR Work Phone: [facility] 08-12-2020 Covid (Pfizer) FOUNDRY SUPERVISOR-C Scar San er FOUNDRY SUPERVISOR Work Phone: [facility] 07-22-2020 Covid (Pfizer) FOUNDRY SUPERVISOR-C Scar Munsond er FOUNDRY SUPERVISOR Work Phone: [facility] Payers Date Payer Category Payer Self-pay [id number] 2023 Unknown [id number] Unknown [id number] Unknown [id number] [id number] Unknown [id number] [id number] [id number] Unknown [id number] [id number] [id number] Unknown [id number] [id number] Unknown [id number] [id number] [id number] Social History Date Type Detail Facility Start: 01-23-2022 End: 07-04-2023 Tobacco smoking status NHIS Unknown if ever smoked [facility] Start: 1965 Sex Assigned At Female [facility] Start: 07-04-2023 Tobacco smoking stat us NYIS Never smoked tobacco (finding) [facility] Evaluation note 10-30-2024 Note Date & Type Note Facility 10-30-2024 Evaluation note Diagnosis Onset Date Resolution History of partial hysterectomy acute October 30, 2024 2:44pm Yeast vaginitis acute October 2:44pm Encounter for routine gynecological examination noneactive October 30, 2024 2:44pm [facility] Work Phone: Progress note 10-30-2024 Note Date & Type Note Facility 10-30-2024 Progress note [facility] Progress note 10-30-2024 Note Date & Type Note Facility 10-30-2024 Progress note Note Date/Time October 30, 2024 3:15pm [facility] [address] [place] [address], [address] [place] [address] OFFICE VISIT Date of Service: 10/30/24 MR#: [id number] Acct: [id number] Name: MONSERRAT LEMUS RENU Rep #: [id number] : 1965 Provider: Dr. Kentrell Puente MD Age/Sex: 59/F Location: [facility] Status: Signed Intake Vital Signs 07/04/23 08:36 10/30/24 14:48 Height 5 ft 7 in 5 ft 7 in Weight: 147 lb 2 oz BMI 23.0 BP 125/75 H Intake Visit Reasons: Annual (DATABASE SPECIALIST) Inker Required: No Is patient in pain?: No [...] Diabetes 10/30/24 10/30/24 History subcutaneous pen injector (Katty) Is [...] history: - Bill- [employer] Patient works at [employer] History 2 Elective abortions Hx Para 2 Spontaneous abortions Hx # Term Pregnancies Ectopic pregnancies Hx # Pregnancies Multiple births # of living children Past Pregnancies Del. Date Name GA/Weeks Outcome Route Bth Weight Infant Gen Labor Lgth Anesthesia Del Locatn Provider FOB Larry Diaz HPI Encounter for routine gynecological examination Details: MONSERRAT LEMUS is a 59 year old who presents for annual exam.only 1 yeast infecitonthis year Last PAP: 01/14/2020 - normal History of abnormal PAP: Last mammogram: 07/15/2023 - normal History of abnormal mammogram: Colon cancer screening: Other preventative health care screenings: PCP Eckert Female Reproductive History Menopausal Symptoms: No [...] acute distress, well developed and well groomed HENGA Head: normal to inspection and normocephalic Ears: [...] maintenance exam or sooner if needed. 10/30/24 [id number] <Electronically signed by Niki angela MD> Date _ Niki Jacobsen Signature: Date (if applicable) CC: ~ [facility] [employer] Work Phone: Evaluation note Note Date & Type Note Facility Evaluation note Diagnosis Onset Date Diabetes chronic Hypertension chronic Type 2 diabetes mellitus chr onic Urinary frequency noneactive Influenza vaccination admini stered at current visit noneactive [facility] Work Phone: Evaluation note Note Date & Type Note Facility Evaluation note Diagnosis Onset Date Hypertension chronic Type 2 diabetes mellitus chr onic Encounter for routine gyneco logical examination noneactive [facility] Work Phone: Evaluation note Note Date & Type Note Facility Evaluation note Diagnosis Onset Date Depression chronic Hypertension chronic Type 2 diabetes mellitus chr onic [facility] Work Phone: Evaluation note Note Date & Type Note Facility Evaluation note Diagnosis Onset Date History of partial hysterectomy acute Yeast vaginitis acute Encounter for routine gyneco logical examination noneactive [facility] Work Phone: Evaluation note Note Date & Type Note Facility Evaluation note Diagnosis Onset Date Resolution History of partial hysterectomy acute October 30, 2024 2:44pm Yeast vaginitis acute October 2:44pm Encounter for routine gynecological examination noneactive October 30, 2024 2:44pm [facility] Work Phone: Reason for referral (narrative) Note Date & Type Note Facility Reason for referral (narrative) No reason for referral information available [facility] Work Phone: Summary Purpose Family History No [...] for Visit Chief Complaint Admit Date Annual (DATABASE SPECIALIST) October 30, 2024 2:44 pm screening mammogram [...] visit Chief Complaint 4 M FU Annual (DATABASE SPECIALIST) POST ACCIDENT/NON DOT/DRUG SCREEN/BATPALLOTTA SCREENING Reason for Visit Hypertension Type 2 diabetes mellitus Encounter for routine gynecological examination Chief Complaint POST ACCIDENT/NON DO T/DRUG SCREEN/BATPALLOTTA SCREENING 3 M FU Reason for Visit Depression Hypertension Type 2 diabetes mellitus Chief Complaint Annual (DATABASE SPECIALIST) SCREENING Reason for Visit History of partial h ysterectomy Yeast vaginitis Encounter for routine gynecological examination Chief Complaint Admit Date Annual (DATABASE SPECIALIST) October 30, 2024 2:44 pm Additional Source Comments INFORMATION SOURCE (unrecogn ized section and content) DATE CREATED AUTHOR 12/28/2017 [facility] DATE CREATED AUTHOR AUTHOR'S ORGANIZ ATION 09/27/2018 [facility] DATE CREATED AUTHOR AUTHOR'S ORGANIZ ATION 10/13/2018 [facility] DATE CREATED AUTHOR AUTHOR'S ORGANIZ ATION 12/19/2024 [facility] Goals (unrecognized section and content) Goals may [...] Active Member Role Status Dates Scar Eckert NP, FOUNDRY SUPERVISOR-C Primary Care Provider Active Team Status: Inactive Member Role Status Dates Scar Eckert NP, FOUNDRY SUPERVISOR-C Primary Care Provider, Referring Ruben gupta Active Dr. Niki uPente MD Attending Provider Active Team Status: Inactive Member Role Status Dates Scar Eckert FOUNDRY SUPERVISOR, FOUNDRY SUPERVISOR-C Primary Care Provide r, Attending Provider, Referring Provider Active Team Status: Inactive Member Role Status Dates Scar Eckert NP, FOUNDRY SUPERVISOR-C Primary Care Provider, Referring Ruben gupta Active Juan C BURRELL, PA Attending Provider Active Team Status: Inactive Member Role Status Dates Scar Tomeka FOUNDRY SUPERVISOR, FOUNDRY SUPERVISOR-C Primary Care Provider Active Dr. Niki Puente MD Attending Provider Active Team Status: Inactive Member Role Status Dates Dr. Niki Puente MD Attending Provider, Referr ing Provider Active Team Status: Active Member Role/Relationship Status Dates Scar Eckert VSC, FOUNDRY SUPERVISOR-C Primary Care Provider Active Team Status: Inactive Member Role/Relationship Status Dates Scar Eckert VSC, FOUNDRY SUPERVISOR-C Primary Care Provider Active Start: October 30, 2024 End: October 30, 2024 Scar Eckert VSC, FOUNDRY SUPERVISOR-C Referring Provider Active S tart: October 30, 2024 End: October 30, 2024 Dr. Niki Puente MD Attending Provider Active Start: October 30, 2024 End: October 30, 2024 Team Status: Inactive Member Role/Relationship Status Dates Scar Munsonder VSC, FOUNDRY SUPERVISOR-C Primary Care Provider Active Start: October 30, 2024 End: October 30, 2024 Dr. Ольга Barger DO Attending Provider Activ e Start: October 30, 2024 End: October 30, 2024 Dr. Ольга Barger DO Referring Provider Activ e Start: October 30, 2024 End: October 30, 2024 Team Status: Inactive Member Role/Relationship Status Dates Scar Eckert VSC, FOUNDRY SUPERVISOR-C Primary Care Provider Active Start: November 10, 2024 End: November 10, 2024 Dr. Niki Puente MD Attending Provider Active Start: November 10, 2024 End: November 10, 2024 Dr. Niki Puente MD Referring Provider Active Start: November 10, 2024 End: November 10, 2024 Team Status: Inactive Member Role/Relationship Status Dates Scar Eckert VSC, FOUNDRY SUPERVISOR-C Primary Care Provider Active Start: December 09, 2024 End: December 09, 2024 Scar Eckert VSC, FOUNDRY SUPERVISOR-C Attending Provider Active S tart: December 09, 2024 End: December 09, 2024 FOR RECORDS PERTAINING TO PATIENTS WHO [...] BE BASED ON THE PRIMARY CLINICAL RECORDS. [facility]. provides no warranty or guarantee of the accuracy or completeness of information in this document.
== END | disposition home or self-care (01) ==
LOC: LAB 12:08
PROVIDERS: PCP Nurse Practitioner Family
DX: E86.0 Dehydration (principal)
CPT/HCPCS: 36415; 80048; 81002

== ENCOUNTER → 2025-02-09 | Outpatient (CLI) | payer OTHER, SELFPAY ==
[2025-02-09 08:52] LABS: Anion Gap 16 (5-15); BUN 23 mg/dL (4-19); BUN/Creat Ratio 29.8 RATIO (10-20); Calcium,Total 9.6 mg/dL (7.6-11.0); Carbon Dioxide 23.4 mmol/L (21.0-32.0); Chloride 99 mmol/L (98-108); Glucose 150 mg/dL (70-99); Potassium 3.4 mmol/L (3.3-5.1)
== END | disposition home or self-care (01) ==
PROVIDERS: PCP Nurse Practitioner Family
DX: E87.6 Hypokalemia (principal)
CPT/HCPCS: 36415; 80048